=== PATIENT | male | born 1980 | race Caucasian/White ===

== ENCOUNTER 2018-10-07 17:15 | Emergency (ER) | payer MEDICAID, OTHER ==
[~2018-10-07] VITALS: Ht 188 cm; Wt 121.1 kg
--- OUTSIDE RECORDS SUMMARY | 2018-10-07 17:20 | XMS REPORT ---
Author Author SEAN SCHMID Organization [facility] Address [address] [place] [address] Care Team Providers Care Sap Consultant Name Role Phone SEAN SCHMID Unavailable PROBLEMS Type Condition ICD9-CM Code BGH50-BA Code Onset Dates Condition Status SNOMED Code Problem Thrombocytosis D47.3 Active [id number] ALLERGIES No Information ENCOUNTERS Encounter Location Date Diagnosis [address] [address] Sep, History of hepatitis C Z86.[address] [address] Sep, Abdominal pain, unspecified abdominal location R10.9 and History of hepatitis C Z86.[address] [address] Sep, IMMUNIZATIONS No Known Immunizations SOCIAL HISTORY Never Assessed REASON FOR VISIT Lab results PLAN OF CARE VITAL SIGNS MEDICATIONS Unknown Medications RESULTS No Results PROCEDURES No Known procedures INSTRUCTIONS MEDICATIONS ADMINISTERED No Known Medications MEDICAL (GENERAL) HISTORY Type Description Date Medical History depression Medical History anxiety Medical History hep C Medical History elevated cholesterol with elevated triglycerides Surgical History none
[2018-10-07] MEDS ORDERED: IOHEXOL 350 MG/ML 100 ML (OMNIPAQUE 350) VIAL IV ONE (18:30)
[2018-10-07] MEDS ORDERED: CATHETER FLUSH 10 ML SYR IV PRN (18:30)
[2018-10-07] MEDS ORDERED: NS 50 ML (IVPB) BAG IV ONE (18:30)
[2018-10-07] MEDS ORDERED: HOLD METFORMIN - RECEIVED CONTRAST 20 ML VIAL IV SCH (18:30)
--- NOTE | 2018-10-07 19:09 | Diagnostic Imaging Report ---
PROCEDURE: CT abdomen and pelvis with contrast. TECHNIQUE: Multiple contiguous axial images were obtained through the abdomen and pelvis after administration of intravenous contrast. Auto Exposure Controls were utilized during the CT exam to meet ALARA standards for radiation dose reduction. INDICATION: Right-sided abdominal pain and bloating. COMPARISON: No prior studies are available for comparison. FINDINGS: Imaging through the lung bases demonstrates a very small left pleural effusion. Minimal infiltrate or atelectasis in the left base as well. The liver demonstrates a nodular contour consistent with cirrhosis. No discrete liver mass is identified. There appear to be collateral vessels in the right anterior abdomen. The spleen is enlarged at approximately 20 cm. Pancreas is unremarkable. No adrenal masses detected. The kidneys are unremarkable. Aorta is nonaneurysmal. There is moderate ascites throughout the abdomen and pelvis. Bladder is decompressed. Bowel loops appear to be normal caliber without evidence of obstruction. No free air or well-formed fluid collection is seen. IMPRESSION: 1. Nodular contour to the liver, suspicious for cirrhosis. No discrete liver mass is identified. There is splenomegaly, large abdominal and pelvic ascites as well as abdominal varices, suggestive of portal hypertension. No other significant abnormality is detected. Dictated by: Dictated on workstation # [id number]
[2018-10-07 19:19] LABS: HEMATOCRIT 36 % (40-54); HEMOGLOBIN 12.2 G/DL (13.3-17.7); MEAN CORPUSCULAR HEMOGLOBIN 35 PG (25-34); MEAN CORPUSCULAR HGB CONC 34 G/DL (32-36); MEAN CORPUSCULAR VOLUME 103 FL (80-99); PLATELET COUNT 64 10^3/uL (130-400); RED CELL DISTRIBUTION WIDTH 15.7 % (10.0-14.5); WHITE BLOOD COUNT 4.2 10^3/uL (4.3-11.0)
[2018-10-07 19:20] LABS: BASOPHILS % (AUTO) 1 % (0-10); EOSINOPHILS # (AUTO) 0.1 10^3/uL (0.0-0.3); EOSINOPHILS % (AUTO) 3 % (0-10); LYMPHOCYTES # (AUTO) 1.8 X 10^3 (1.0-4.0); LYMPHOCYTES % (AUTO) 42 % (12-44); MEAN PLATELET VOLUME 10.1 FL (7.4-10.4); MONOCYTES # (AUTO) 0.4 X 10^3 (0.0-1.0); MONOCYTES % (AUTO) 9 % (0-12); NEUTROPHILS # (AUTO) 1.9 X 10^3 (1.8-7.8); NEUTROPHILS % (AUTO) 45 % (42-75)
[2018-10-07 19:21] LABS: CANNABINOID SCREEN, URINE POSITIVE (NEGATIVE); COCAINE SCREEN URINE NEGATIVE (NEGATIVE); METHAMPHETAMINE SCREEN URINE S NEGATIVE (NEGATIVE)
[2018-10-07 19:22] LABS: AMPHETAMINE SCREEN, URINE NEGATIVE (NEGATIVE); BARBITURATE SCREEN URINE NEGATIVE (NEGATIVE); BENZODIAZEPINES SCREEN URINE NEGATIVE (NEGATIVE); METHADONE STAT NEGATIVE (NEGATIVE); OPIATE SCREEN URINE NEGATIVE (NEGATIVE); OXYCODONE STAT NEGATIVE (NEGATIVE); PROPOXYPHENE STAT NEGATIVE (NEGATIVE); TRICYCLIC ANTIDEPRESSANTS SCRE NEGATIVE (NEGATIVE)
[2018-10-07 19:23] LABS: CLARITY,URINE CLEAR; COLOR,URINE ORANGE; GLUCOSE, URINE (UA) TRACE (NEGATIVE); PROTEIN,URINE TRACE (NEGATIVE)
[2018-10-07 19:24] LABS: BILIRUBIN,URINE 2+ (NEGATIVE); KETONES,URINE TRACE (NEGATIVE); NITRITE,URINE POSITIVE (NEGATIVE)
[2018-10-07 19:25] LABS: BACTERIA,URINE NEGATIVE /HPF; LEUKOCYTE ESTERASE ,URINE NEGATIVE (NEGATIVE); RBC,URINE 0-2 /HPF; UROBILINOGEN,URINE >=8.0 MG/DL (NORMAL)
[2018-10-07] MEDS ORDERED: fentaNYL INJECTION 100 MCG/2 ML AMP IVP ONE ×2 (19:30→21:15)
[2018-10-07] MEDS ORDERED: ONDANSETRON 4 MG/2 ML (SDV) Z0FRAN IVP ONE (19:30)
[2018-10-07] MEDS ORDERED: NS IV 500 ML 500 ML IV ONE (19:30)
[2018-10-07 19:33] LABS: INR 1.7 (0.8-1.4); PROTHROMBIN TIME PATIENT 19.6 SEC (12.2-14.7)
[2018-10-07 19:34] LABS: CARBON DIOXIDE 25 MMOL/L (21-32); CHLORIDE 104 MMOL/L (98-107); POTASSIUM 3.5 MMOL/L (3.6-5.0); SODIUM 138 MMOL/L (135-145)
[2018-10-07 19:35] LABS: ALANINE AMINOTRANSFERASE 29 U/L (0-55); ALBUMIN 2.5 GM/DL (3.2-4.5); ALKALINE PHOSPHATASE 170 U/L (40-136); BILIRUBIN,TOTAL 3.6 MG/DL (0.1-1.0); BUN/CREATININE RATIO 9; CALCIUM 7.5 MG/DL (8.5-10.1); CREATININE SERUM 0.64 MG/DL (0.60-1.30); GFR ESTIMATED > 60; GLUCOSE 79 MG/DL (70-105); LIPASE 67 U/L (8-78); TOTAL PROTEIN 5.8 GM/DL (6.4-8.2)
--- NOTE | 2018-10-07 19:44 | ED Abdominal Pain ---
General Chief Complaint: Abdominal/GI Problems Stated Complaint: BLOATING, ABD PAIN Nursing Triage Note: Sent from [facility] for abdominal pain, hx of hep C. Has had abdominal pain for 2 months that is worsening. Was seen 2 months ago in clinic but has not been seen since then. Sepsis Screen: No Definite Risk Source of Information: Patient, Spouse History of Present Illness Date Seen by Provider: Oct 07, 2018 Time Seen by Provider: 18:55 Initial Comments 38-year-old male presenting with increasing abdominal pain and swelling. He states over the last 2 months he's had increasing pain. In the last week he has had worsening pain so his made him come to the emergency department to get checked out today. He denies having any fever or chills at home. He states he has been having some shortness of breath because of his abdominal swelling. He denies having any blood in his stools. He has had some loose stools recently. He denies any change in his urination but states that it has been a long darker recently. He admits to only drinking 32 ounces of soda in a day and then some water to take his pills. He is taking medication from the hepatology clinic at for treatment of his hepatitis C. He started this in July and at this 12 week course so he is almost finished with this. He reports that his next follow- up with them is not until March. Allergies and Home Medications Allergies Coded Allergies: No Known Drug Allergies (Unverified , 10/07/18) Home Medications Furosemide 40 Mg Tablet, 40 MG PO DAILY Prescribed by: JOSEFINA MALONEY on 10/07/182255 Glecaprevir/Pibrentasvir 1 Each Tablet, 3 TAB PO DAILY, (Reported) Spironolactone 100 Mg Tablet, 100 MG PO DAILY Prescribed by: JOSEFINA MALONEY on 10/07/182255 Patient Home Medication List Home Medication List Reviewed: Yes Review of Systems Review of Systems Constitutional: No chills, No fever EENTM: No Symptoms Reported Respiratory: Denies Cough; Shortness of Air (due to increased abdomen size) Cardiovascular: No Symptoms Reported Gastrointestinal: Abdomen Distended, Abdominal Pain; Denies Blood Streaked Stools, Denies Constipated, Denies Difficulty Swallowing; Nausea, Poor Fluid Intake; Denies Rectal Bleeding, Denies Vomiting Genitourinary: See HPI; Denies Burning, Denies Discharge, Denies Frequency, Denies Hematuria, Denies Pain, Denies Urgency; Other (darker colored urine) Musculoskeletal: no symptoms reported Skin: no symptoms reported; No change in color Psychiatric/Neurological: No Symptoms Reported Hematologic/Lymphatic: Easy Bruising Past Eofxgjy-Bnmwdp-Oowite Hx Past Med/Social Hx: Reviewed Nursing Past Med/Soc Hx Patient Social History Alcohol Use: Denies Use Recreational Drug Use: Yes Drug of Choice: marijuana Smoking Status: Current Everyday Smoker Type Used: Cigarettes Recent Foreign Travel: No Contact w/Someone Who Travel: No Recent Infectious Disease Expo: No Physical Abuse: No Sexual Abuse: No Mistreated: No Past Medical History Respiratory: No Cardiac: No Neurological: No Genitourinary: No Gastrointestinal: Yes Hepatitis, Cirrhosis Musculoskeletal: No Endocrine: No HEENT: No Cancer: No Physical Exam Vital Signs Vital Signs - First Documented 10/07/18 17:31 Temp 98.6 Pulse 87 Resp 26 B/P (MAP) 142/85 (104) Pulse Ox 98 Capillary Refill : Less Than 3 Seconds Height/Weight/BMI Height: 6'2.00" Weight: 267lbs. oz. 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, no motor/sensory deficits, alert, oriented x 3 Skin: normal color, warm/dry Progress/Results/Core Measures Results/Orders Lab Results Laboratory Tests Test 10/07/18 18:38 10/07/18 18:55 Range/Units Urine Color ORANGE Urine Clarity CLEAR Urine pH 6.0 5-9 Urine Specific [place] 1.025 H 1.016-1.022 Urine Protein TRACE H NEGATIVE Urine Glucose (UA) TRACE H NEGATIVE Urine Ketones TRACE H NEGATIVE Urine Nitrite POSITIVE H NEGATIVE Urine Bilirubin 2+ H NEGATIVE Urine Urobilinogen >=8.0 NORMAL MG/DL Urine Leukocyte Esterase NEGATIVE NEGATIVE Urine RBC (Auto) NEGATIVE NEGATIVE Urine RBC 0-2 /HPF Urine WBC 2-5 /HPF Urine Squamous Epithelial Cells NONE /HPF Urine Crystals NONE /LPF Urine Bacteria NEGATIVE /HPF Urine Casts NONE /LPF Urine Mucus LARGE H /LPF Urine Culture Indicated YES Urine Opiates Screen NEGATIVE NEGATIVE Urine Oxycodone Screen NEGATIVE NEGATIVE Urine Methadone Screen NEGATIVE NEGATIVE Urine Propoxyphene Screen NEGATIVE NEGATIVE Urine Barbiturates Screen NEGATIVE NEGATIVE Ur Tricyclic Antidepressants Screen NEGATIVE NEGATIVE Urine Phencyclidine Screen NEGATIVE NEGATIVE Urine Amphetamines Screen NEGATIVE NEGATIVE Urine Methamphetamines Screen NEGATIVE NEGATIVE Urine Benzodiazepines Screen NEGATIVE NEGATIVE Urine Cocaine Screen NEGATIVE NEGATIVE Urine Cannabinoids Screen POSITIVE H NEGATIVE White Blood Count 4.2 L 4.3-11.0 10^3/uL Red Blood Count 3.52 L 4.35-5.85 10^6/uL Hemoglobin 12.2 L 13.3-17.7 G/DL Hematocrit 36 L 40-54 % Mean Corpuscular Volume 103 H 80-99 FL Mean Corpuscular Hemoglobin 35 H 25-34 PG Mean Corpuscular Hemoglobin Concent 34 32-36 G/DL Red Cell Distribution Width 15.7 H 10.0-14.5 % Platelet Count 64 L 130-400 10^3/uL Mean Platelet Volume 10.1 7.4-10.4 FL Neutrophils (%) (Auto) 45 42-75 % Lymphocytes (%) (Auto) 42 12-44 % Monocytes (%) (Auto) 9 0-12 % Eosinophils (%) (Auto) 3 0-10 % Basophils (%) (Auto) 1 0-10 % Neutrophils # (Auto) 1.9 1.8-7.8 X 10^3 Lymphocytes # (Auto) 1.8 1.0-4.0 X 10^3 Monocytes # (Auto) 0.4 0.0-1.0 X 10^3 Eosinophils # (Auto) 0.1 0.0-0.3 10^3/uL Basophils # (Auto) 0.0 0.0-0.1 10^3/uL Prothrombin Time 19.6 H 12.2-14.7 SEC INR Comment 1.7 H 0.8-1.4 Activated Partial Thromboplast Time 39 H 24-35 SEC Sodium Level 138 135-145 MMOL/L Potassium Level 3.5 L 3.6-5.0 MMOL/L Chloride Level 104 98-107 MMOL/L Carbon Dioxide Level 25 21-32 MMOL/L Anion Gap 9 5-14 MMOL/L Blood Urea Nitrogen 6 L 7-18 MG/DL Creatinine 0.64 0.60-1.30 MG/DL Estimat Glomerular Filtration Rate > 60 BUN/Creatinine Ratio 9 Glucose Level 79 70-105 MG/DL Calcium Level 7.5 L 8.5-10.1 MG/DL Corrected Calcium 8.7 8.5-10.1 MG/DL Total Bilirubin 3.6 H 0.1-1.0 MG/DL Aspartate Amino Transf (AST/SGOT) 48 H 5-34 U/L Alanine Aminotransferase (ALT/SGPT) 29 0-55 U/L Alkaline Phosphatase 170 H 40-136 U/L Total Protein 5.8 L 6.4-8.2 GM/DL Albumin 2.5 L 3.2-4.5 GM/DL Lipase 67 8-78 U/L Serum Alcohol < 10 <10 MG/DL My Orders Orders - JOSEFINA MALONEY MD Comprehensive Metabolic Panel (10/07/18 18:13) Lipase (10/07/18 18:13) Ua Culture If Indicated (10/07/18 18:13) Saline Lock/Iv-Start (10/07/18 18:13) Cbc With Automated Diff (10/07/18 18:13) Ct Abdomen/Pelvis W (10/07/18 18:13) Protime With Inr (10/07/18 18:13) Partial Thromboplastin Time (10/07/18 18:13) Drug Screen Stat (Urine) (10/07/18 18:13) Alcohol (10/07/18 18:13) Iohexol Injection (Omnipaque 350 Mg/Ml 1 (10/07/18 18:30) Received Contrast (Hold Metformin- Contr (10/07/18 18:30) Sodium Chloride Flush (Catheter Flush Sy (10/07/18 18:30) Ns (Ivpb) (Sodium Chloride 0.9% Ivpb Bag (10/07/18 18:30) Urine Culture (10/07/18 18:38) Fentanyl Injection (Sublimaze Injection (10/07/18 19:30) Ns Iv 500 Ml (Sodium Chloride 0.9%) (10/07/18 19:30) Ondansetron Injection (Zofran Injectio (10/07/18 19:30) Fentanyl Injection (Sublimaze Injection (10/07/18 21:15) Furosemide Tablet (Lasix Tablet) (10/07/18 23:00) Furosemide Tablet (Lasix Tablet) (10/07/18 23:07) Medications Given in ED Current Medications Medications Dose Ordered Sig/Rufino Route Start Time Stop Time Status Last Admin Dose Admin Fentanyl Citrate 50 mcg ONCE ONCE IVP 10/07/18 19:30 10/07/18 19:31 DC 10/07/18 19:43 50 MCG Fentanyl Citrate 50 mcg ONCE ONCE IVP 10/07/18 21:15 10/07/18 21:16 DC 10/07/18 21:32 50 MCG Furosemide 40 mg ONCE ONCE PO 10/07/18 23:00 10/07/18 23:01 DC 10/07/18 23:28 40 MG Iohexol 100 ml ONCE ONCE IV 10/07/18 18:30 10/07/18 18:38 DC 10/07/18 18:43 100 ML Ondansetron HCl 4 mg ONCE ONCE IVP 10/07/18 19:30 10/07/18 19:31 DC 10/07/18 19:43 4 MG Sodium Chloride 10 ml NEEDED PRN IV 10/07/18 18:30 10/08/18 00:09 DC 10/07/18 18:43 10 ML Sodium Chloride 50 ml ONCE ONCE IV 10/07/18 18:30 10/07/18 18:38 DC 10/07/18 18:43 50 ML Sodium Chloride 500 ml @ 500 mls/hr Q1H ONCE IV 10/07/18 19:30 10/07/18 20:29 DC 10/07/18 19:41 500 MLS/HR Vital Signs/I&O 10/07/18 10/07/18 17:31 23:35 Temp 98.6 98.0 Pulse 87 83 Resp 26 17 B/P (MAP) 142/85 (104) 119/67 (84) Pulse Ox 98 94 10/08/18 00:00 Intake Total 510 ml Balance 510 ml Blood Pressure Mean: 104 Progress Progress Note #1: Progress Note check labs and CT scan of abdomen and pelvis to evaluate this abdominal pain and swelling. For the pain we'll try low-dose of fentanyl 50 g IV as well as 4 mg of Zofran for his nausea. Will give a small 500 mL bolus of normal saline since he states that he has not been drinking very much fluid and his urine has been darker in color. Progress Note #2: Time: 20:40 Progress Note On recheck his CT shows ascites and cirrhosis of his liver with findings for portal hypertension as well as splenomegaly. His labs were coming back showing chronic thrombocytopenia and chronic elevated bilirubin. His potassium is double -sided normal at 3.5 his calcium is a little low at 7.5. His coags are normal elevated to go along with his cirrhosis and hepatitis C. His urine was showing elevated bilirubin as well. His pain was improved after treatment. Will check in with [facility] in the hepatology department was for a consult. They may want him transferred to be able to do a diagnostic tap of his belly since he's had increasing abdominal pain in the last few weeks and months but they may also want him started on diuretics and follow-up in the clinic to get the testing done. Progress Note #3: Time: 21:20 Progress Note Page placed to the [facility] transfer center to get a consult with hepatology and they were dealing with of critical time since the patient and had to call me back. [address] one of the nurses from the transfer center called back and requested more information about Mr. Reeder. I reviewed things with him and faxed him the labs as well as clouded the imaging to . 2235 Dr. Alta Duncan with hepatology called back and I reviewed the case with her. She agreed that the patient did need a diagnostic tap but it does not sound like he needed it emergently tonight. Will arrange to have him get that done during the day. For tonight we will start him on Lasix 40 mg a day and Aldactone 100 mg a day. She will have her nurses from the hepatology clinic call tomorrow to get him arranged to have a diagnostic if not therapeutic tap done. I reviewed the plan with the patient and family. I counseled them on medication and treatment plan. I also reviewed follow-up and return precautions. Diagnostic Imaging Diagonstic Imaging: CT Plain Films/CT/US/NM/MRI: abdomen, pelvis Comments NAME: ABDELRAHMAN REEDER [facility] REC#: [id number] PT STATUS: REG ER : 1980 PHYSICIAN: JOSEFINA MALONEY MD ADMIT DATE: 10/07/18/ER FS Signed Date of Exam:10/07/18 CT ABDOMEN/PELVIS W PROCEDURE: CT abdomen and pelvis with contrast. TECHNIQUE: Multiple contiguous axial images were obtained through the abdomen and pelvis after administration of intravenous contrast. Auto Exposure Controls were utilized during the CT exam to meet ALARA standards for radiation dose reduction. INDICATION: Right-sided abdominal pain and bloating. COMPARISON: No prior studies are available for comparison. FINDINGS: Imaging through the lung bases demonstrates a very small left pleural effusion. Minimal infiltrate or atelectasis in the left base as well. The liver demonstrates a nodular contour consistent with cirrhosis. No discrete liver mass is identified. There appear to be collateral vessels in the right anterior abdomen. The spleen is enlarged at approximately 20 cm. Pancreas is unremarkable. No adrenal masses detected. The kidneys are unremarkable. Aorta is nonaneurysmal. There is moderate ascites throughout the abdomen and pelvis. Bladder is decompressed. Bowel loops appear to be normal caliber without evidence of obstruction. No free air or well-formed fluid collection is seen. IMPRESSION: 1. Nodular contour to the liver, suspicious for cirrhosis. No discrete liver mass is identified. There is splenomegaly, large abdominal and pelvic ascites as well as abdominal varices, suggestive of portal hypertension. No other significant abnormality is detected. Dictated by: Dictated on workstation # [id number] Dict: 10/07/18 1858 Reviewed: Reviewed by Me (and reviewed reading from Radiologist) Departure Impression Primary Impression: Cirrhosis of liver with ascites Qualified Codes: K74.60 - Unspecified cirrhosis of liver; R18.8 - Other ascites Additional Impression: Portal venous hypertension Disposition: HOME, SELF-CARE Condition: Stable Departure-Patient Inst. Decision time for Depature: 22:51 Referrals: [facility] (PCP) Primary Care Physician Patient Instructions: Cirrhosis, Fluid in the Belly (Ascites) (DC) Add. Discharge Instructions: Follow up with [facility] for a Paracentesis. They will need to drain some of the fluid (Ascites) from your belly to test for infection and to help with pain and abdominal swelling. The new medicines will help with the swelling but may also cause you to be dehydrated so you need to make sure you are drinking plenty of water and electrolyte drinks to stay well hydrated while you are taking them. [facility] is to call you to arrange for a Paracentesis tomorrow. If you have not heard from them by mid to late morning then you may call the hepatology clinic to help arrange for this. Dr. Alta Duncan was the doctor I spoke with nahed that wanted you to get seen and have this test done. All discharge instructions reviewed with patient and/or family. Voiced understanding. Scripts Spironolactone (Spironolactone) 100 Mg Tablet 100 MG PO DAILY for ascites for 15 Days, #15 TAB 0 Refills Prov: JOSEFINA MALONEY MD 10/07/18 Furosemide (Furosemide) 40 Mg Tablet 40 MG PO DAILY for ascites for 15 Days, #15 TAB 0 Refills Prov: JSOEFINA MALONEY MD 10/07/18 JOSEFINA MALONEY MD Oct 07, 2018 19:44
[2018-10-07] MEDS ORDERED: FURO40TA4 PO (22:56)
[2018-10-07] MEDS ORDERED: SPIR100T4 PO (22:56)
[2018-10-07] MEDS ORDERED: FUROSEMIDE 40 MG (LASIX) TAB PO ONE (23:00)
[2018-10-07] MEDS ORDERED: FUROSEMIDE 20 MG (LASIX) TAB ONE (23:07)
[2018-10-07 23:35] VITALS: BP 119/67
[2018-10-08] MEDS ORDERED: GLEC1TAB PO (00:03)
== END 2018-10-07 23:35 | disposition home or self-care (01) ==
LOC: ER FS 17:16
DX: K74.60 Unspecified cirrhosis of liver (principal); R18.8 Other ascites; K76.6 Portal hypertension; F12.10 Cannabis abuse, uncomplicated; F17.210 Nicotine dependence, cigarettes, uncomplicated; Z87.19 Personal history of other diseases of the digestive system
CPT/HCPCS: 36415; 74177; 80053; 80306; 80320; 81000; 83690; 85025; 85610; 85730; 87088; 96361; 96374; 96375; 96376

== ENCOUNTER → 2018-10-14 | Outpatient (CLI) | payer MEDICAID ==
[~2018-10-14] MED LIST: CATHETER FLUSH 10 ML SYR IV PRN; FURO40TA4 PO; GLEC1TAB PO; HOLD METFORMIN - RECEIVED CONTRAST 20 ML VIAL IV SCH; IOHEXOL 350 MG/ML 100 ML (OMNIPAQUE 350) VIAL IV ONE; NS 50 ML (IVPB) BAG IV ONE; SPIR100T4 PO
--- NOTE | 2018-10-14 13:55 | Diagnostic Imaging Report ---
PROCEDURE: CT abdomen and pelvis with contrast. TECHNIQUE: Multiple contiguous axial images were obtained through the abdomen and pelvis after administration of intravenous contrast. Auto Exposure Controls were utilized during the CT exam to meet ALARA standards for radiation dose reduction. INDICATION: Abdominal pain. FINDINGS: The previous CT abdomen/pelvis exam of 10/07/2018 noted that the liver had a nodular appearance, suggestive of cirrhosis. There was also splenomegaly. In addition, there was abdominal and pelvic ascites. Reportedly, the patient underwent paracentesis two days later. On this exam, the amount of ascites present is similar to the prior study. The fluid interposed between the abdominal wall and the liver measures approximately 3.9 cm in maximum depth as opposed to 4.7 cm on the previous study. The overall appearance of the abdomen and pelvis has not changed significantly, otherwise. No new abnormality has developed. As noted on the prior exam, there is a small amount of fluid in the left lung base. The atelectasis/infiltrate in the left lower lobe seen previously has essentially resolved. The right lung base is generally clear. The bone windows show no sign of a fracture or of a destructive lesion. IMPRESSION: 1. There has been a significant reaccumulation of the ascites in the interval since the paracentesis. The amount of free fluid present within the abdomen is now somewhat less but similar to the previous study. 2. The overall appearance of the abdomen and pelvis has not changed significantly, otherwise. No new abnormality has developed. 3. There is still persistent small left pleural effusion. The left lower lobe does seem better aerated, however. Dictated by: Dictated on workstation # [id number]
== END ==
LOC: RAD FS 10:37
PROVIDERS: ATTEND Nurse Practitioner
DX: J90 Pleural effusion, not elsewhere classified (principal); R18.8 Other ascites; R14.0 Abdominal distension (gaseous); R10.9 Unspecified abdominal pain
CPT/HCPCS: 74177

== ENCOUNTER 2019-02-12 15:18 | Emergency (ER) | payer MEDICAID ==
[~2019-02-12] VITALS: Ht 188 cm; Wt 113.4 kg
[~2019-02-12 15:18] MED LIST changes: -CATHETER FLUSH 10 ML SYR IV PRN; -HOLD METFORMIN - RECEIVED CONTRAST 20 ML VIAL IV SCH; -IOHEXOL 350 MG/ML 100 ML (OMNIPAQUE 350) VIAL IV ONE; -NS 50 ML (IVPB) BAG IV ONE
[2019-02-12 16:01] LABS: CLARITY,URINE CLEAR; COLOR,URINE DARK YELLOW; PH,URINE 6.5 (5-9)
[2019-02-12 16:02] LABS: BACTERIA,URINE NEGATIVE /HPF; BILIRUBIN,URINE NEGATIVE (NEGATIVE); GLUCOSE, URINE (UA) NEGATIVE (NEGATIVE); KETONES,URINE NEGATIVE (NEGATIVE); LEUKOCYTE ESTERASE ,URINE NEGATIVE (NEGATIVE); NITRITE,URINE NEGATIVE (NEGATIVE); PROTEIN,URINE NEGATIVE (NEGATIVE); WBC,URINE RARE /HPF
[2019-02-12 16:06] LABS: CANNABINOID SCREEN, URINE POSITIVE (NEGATIVE)
[2019-02-12 16:07] LABS: HEMATOCRIT 39 % (40-54); HEMOGLOBIN 12.8 G/DL (13.3-17.7); MEAN CORPUSCULAR HEMOGLOBIN 35 PG (25-34); MEAN CORPUSCULAR VOLUME 107 FL (80-99); WHITE BLOOD COUNT 4.6 10^3/uL (4.3-11.0)
[2019-02-12 16:07] LABS: AMPHETAMINE SCREEN, URINE NEGATIVE (NEGATIVE); BARBITURATE SCREEN URINE NEGATIVE (NEGATIVE); BENZODIAZEPINES SCREEN URINE NEGATIVE (NEGATIVE); COCAINE SCREEN URINE NEGATIVE (NEGATIVE); METHADONE STAT NEGATIVE (NEGATIVE); METHAMPHETAMINE SCREEN URINE S NEGATIVE (NEGATIVE); OPIATE SCREEN URINE NEGATIVE (NEGATIVE); OXYCODONE STAT NEGATIVE (NEGATIVE); PROPOXYPHENE STAT NEGATIVE (NEGATIVE); TRICYCLIC ANTIDEPRESSANTS SCRE NEGATIVE (NEGATIVE)
[2019-02-12 16:08] LABS: BASOPHILS % (AUTO) 0 % (0-10); EOSINOPHILS % (AUTO) 4 % (0-10); LYMPHOCYTES # (AUTO) 1.5 X 10^3 (1.0-4.0); LYMPHOCYTES % (AUTO) 33 % (12-44); MEAN CORPUSCULAR HGB CONC 33 G/DL (32-36); MONOCYTES # (AUTO) 0.4 X 10^3 (0.0-1.0); MONOCYTES % (AUTO) 9 % (0-12); NEUTROPHILS # (AUTO) 2.5 X 10^3 (1.8-7.8); NEUTROPHILS % (AUTO) 54 % (42-75); PLATELET COUNT 70 10^3/uL (130-400); RED CELL DISTRIBUTION WIDTH 14.6 % (10.0-14.5)
[2019-02-12 16:09] LABS: EOSINOPHILS # (AUTO) 0.2 10^3/uL (0.0-0.3)
[2019-02-12 16:23] LABS: ALANINE AMINOTRANSFERASE 37 U/L (0-55); ALBUMIN 2.5 GM/DL (3.2-4.5); ALKALINE PHOSPHATASE 170 U/L (40-136); BILIRUBIN,TOTAL 1.9 MG/DL (0.1-1.0); BUN/CREATININE RATIO 9; CALCIUM 8.2 MG/DL (8.5-10.1); CARBON DIOXIDE 25 MMOL/L (21-32); CHLORIDE 106 MMOL/L (98-107); CREATININE SERUM 0.64 MG/DL (0.60-1.30); GFR ESTIMATED > 60; GLUCOSE 84 MG/DL (70-105); SALICYLATE < 5.0 MG/DL (5.0-20.0); SODIUM 141 MMOL/L (135-145); TOTAL PROTEIN 6.5 GM/DL (6.4-8.2)
[2019-02-12 16:24] LABS: ACETAMINOPHEN < 10 UG/ML (10-30)
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
--- NOTE | 2019-02-12 16:56 | NUR ---
Pt is medically cleared at this time. [facility] is contacted at this. Patient information given and tracking number is [id number]. Facesheet and lab results faxed to [facility].
--- NOTE | 2019-02-12 16:58 | NUR ---
is currently with the patient.
--- NOTE | 2019-02-12 17:04 | NUR ---
Patient's labs and facesheet faxed to [facility] at [phone].
[2019-02-12] MEDS ORDERED: ZIPRASIDONE 20 MG INJ (GEODON) VIAL IM STA (17:16)
[2019-02-12] MEDS ORDERED: WATER (STERILE) FOR INJECTION 10 ML ONE (17:40)
--- NOTE | 2019-02-12 18:30 | NUR ---
Return call rec'd from [facility] with [facility]. Fatmata Rodríguez reports in the intake process a male bed is available. Needing pt's EKG. Faxed EKG
--- NOTE | 2019-02-12 18:40 | NUR ---
EKG re-faxed.
--- NOTE | 2019-02-12 18:51 | NUR ---
Call from [facility] nurse "Chana" and more info requested and condition update and vitals. Chana states she will shannan their Dr and plan on getting a Dr to Dr report shortly. Report to Stacie DELUNA.
[2019-02-12] MEDS ORDERED: NICOTINE 21 MG (NICODERM) PATCH ONE (19:39)
[2019-02-12] MEDS ORDERED: NICOTINE 21 MG (NICODERM) PATCH TD STA (19:46)
[2019-02-12 20:08] VITALS: BP 106/65
--- OUTSIDE RECORDS SUMMARY | 2019-02-13 00:45 | XMS REPORT | Continuity of Care Document ---
Author Organization Unknown Address Unknown Phone Unavailable Allergies There is no data. Medications There is no data. Problems There is no data. Procedures There is no data. Results Test Result Range CBC w/MANUAL DIFF - 09/08/18 14:27 WHITE BLOOD CELL COUNT 5.4 Thousand/uL 3.8-10.8 RED BLOOD CELL COUNT 4.02 Million/uL 4.20-5.80 HEMOGLOBIN 13.7 g/dL 13.2-17.1 HEMATOCRIT 39.2 % 38.5-50.0 MCV 97.5 fL 80.0-100.0 MCH 34.1 pg 27.0-33.0 MCHC 34.9 g/dL 32.0-36.0 RDW 13.9 % 11.0-15.0 PLATELET COUNT 74 Thousand/uL 140-400 MPV 11.9 fL 7.5-12.5 DIFFERENTIAL, MANUAL - 09/08/18 14:27 ABSOLUTE NEUTROPHILS 3618 cells/uL [id number] ABSOLUTE MONOCYTES 470 cells/uL 200-950 ABSOLUTE EOSINOPHILS 211 cells/uL 15-500 ABSOLUTE BASOPHILS 0 cells/uL 0-200 NEUTROPHILS 67.0 % NRG LYMPHOCYTES 19.4 % NRG MONOCYTES 8.7 % NRG EOSINOPHILS 3.9 % NRG BASOPHILS 0 % NRG ABSOLUTE BAND NEUTROPHILS 54 cells/uL 0-750 ABSOLUTE LYMPHOCYTES 1048 cells/uL 850-3900 BAND NEUTROPHILS 1.0 % NRG PLATELET ESTIMATION DECREASED ADEQUATE Encounters ACCT No. Visit Date/Time Discharge Status Pt. Type Provider Facility Loc./Unit Complaint [id number] 12/05/2018 13:00:00 12/05/2018 23:59:59 [facility] Outpatient [facility] [id number] 09/08/2018 13:40:00 Document Registration
== END 2019-02-12 21:15 ==
LOC: EDUNIT# 15:18 → ER FS 15:19
DX: F20.9 Schizophrenia, unspecified (principal); F31.9 Bipolar disorder, unspecified; R45.850 Homicidal ideations; K74.60 Unspecified cirrhosis of liver
CPT/HCPCS: 36415; 80053; 80306; 80320; 80329; 81000; 85025; 93005

== ENCOUNTER → 2019-10-20 | Outpatient (CLI) | payer MEDICAID ==
[~2019-10-20] MED LIST changes: +CATHETER FLUSH 10 ML SYR IV PRN; +HOLD METFORMIN - RECEIVED CONTRAST 20 ML VIAL IV SCH; +IOHEXOL 350 MG/ML 150 ML (OMNIPAQUE 350) VIAL IV ONE; +NS 100 ML (IVPB) BAG IV ONE
--- NOTE | 2019-10-20 16:24 | Diagnostic Imaging Report ---
PROCEDURE: CT angiography of the chest with contrast. TECHNIQUE: Multiple contiguous axial images were obtained through the chest after uneventful bolus administration of intravenous contrast. 3D reconstructed CTA MIP acquisitions were also performed. Auto Exposure Controls were utilized during the CT exam to meet ALARA standards for radiation dose reduction. INDICATION: Shortness of breath and elevated d-dimer. COMPARISON: No prior studies are available for comparison. FINDINGS: The overall quality of the study is compromised due to patient respiratory motion. This also limits evaluation of the segmental and subsegmental pulmonary arteries. The central and lobar pulmonary arteries appear to be patent. No definite filling defect or evidence of thromboembolism is identified. No pericardial fluid is seen. There is trace left pleural effusion. Minimal subsegmental atelectasis in the left lower lobe is noted. Trace infiltrate or atelectasis in the right upper lobe is identified. The upper abdomen demonstrates large ascites. There is a nodular contour to the liver, consistent with cirrhosis. The spleen is enlarged. IMPRESSION: 1. Compromised study but no evidence of central pulmonary emboli. There is trace left pleural fluid. Minimal infiltrate or atelectasis in the right upper lobe and left lower lobe is noted. 2. Large volume ascites with findings consistent with cirrhosis and portal hypertension. Dictated by: Dictated on workstation # [id number]
== END | disposition home or self-care (01) ==
LOC: RAD FS 13:45
PROVIDERS: ATTEND Nurse Practitioner Family
DX: K76.6 Portal hypertension (principal); R06.02 Shortness of breath; R79.1 Abnormal coagulation profile; R18.8 Other ascites
CPT/HCPCS: 71275

== ENCOUNTER → 2019-11-27 | Outpatient (CLI) | payer MEDICAID ==
[~2019-11-27] VITALS: Ht 188 cm; Wt 121.4 kg
[~2019-11-27] MED LIST changes: +ALBUMIN 25% 25 GM/100 ML 100 ML IV NR; -CATHETER FLUSH 10 ML SYR IV PRN; -HOLD METFORMIN - RECEIVED CONTRAST 20 ML VIAL IV SCH; -IOHEXOL 350 MG/ML 150 ML (OMNIPAQUE 350) VIAL IV ONE; -NS 100 ML (IVPB) BAG IV ONE
--- NOTE | 2019-11-27 12:20 | Progress Note-Pre Operative ---
Pre-Operative Progress Note H&P Reviewed The H&P was reviewed, patient examined and no changes noted. Time Seen by Provider: 10:58 Date H&P Reviewed: November 27, 2019 Time H&P Reviewed: 10:58 Pre-Operative Diagnosis: Ascites VETO HUBBARD DO November 27, 2019 12:20
--- NOTE | 2019-11-27 12:25 | Progress Note-Post Operative ---
Post-Operative Progess Note Surgeon (s)/Management Internship (s) Surgeon VETO HUBBARD DO Management Internship: none Pre-Operative Diagnosis Ascites Post-Operative Diagnosis same pending pathology Procedure & Operative Findings Date of Procedure 11/27/19 Procedure Performed/Findings US guided paracentesis Anesthesia Type Local lidocaine Estimated Blood Loss Estimated blood loss (mL): scant Specimens/Packing Specimens Removed over 7000ml VETO HUBBARD DO November 27, 2019 12:25
[2019-11-27 13:05] VITALS: BP 118/69
[2019-11-27 14:04] LABS: GLUCOSE,BODY FLUID 98 MG/DL; TOTAL PROTEIN,BODY FLUID < 0.8 G/DL
[2019-11-27 14:05] LABS: AMYLASE,BODY FLUID 14 U/L; LDH,BODY FLUID 49 U/L
[2019-11-27 14:18] LABS: BF OTHER CELLS 4 %; BODY FLUID APPEARENCE SLT CLDY; BODY FLUID COLOR YELLOW; BODY FLUID RBC COUNT 500 /uL; BODY FLUID SOURCE PERITON; BODY FLUID WBC TOTAL COUNT 155 /uL; LYMPHOCYTES,BODY FLUID 60 %
--- NOTE | 2019-11-27 19:54 | OPERATIVE REPORT ---
DATE OF SERVICE: 11/27/2019 PREOPERATIVE DIAGNOSIS: Ascites. POSTOPERATIVE DIAGNOSIS: Ascites, pending pathology. PROCEDURE: Ultrasound-guided paracentesis. SURGEON: Poncho Almonte DO FIELD ARTILLERY TARGETING TECHNICIAN: None. ANESTHESIA: Local lidocaine. BLOOD LOSS: Scant. SPECIMEN: 7600 mL of ascitic fluid. INDICATION FOR PROCEDURE: The patient is a 39-year-old male with end-stage liver failure and a large amount of ascites and needed a drain. FINDINGS: The patient had ascites drained with ultrasound guidance. PROCEDURE NOTE: After informed consent was obtained surgical pause performed. The patient's in the radiology procedure room was in the bed. He had been marked previously by the ultrasound and then he was sterilely prepped and draped in normal fashion. Local lidocaine was used to infiltrate the skin and then a stab incision made with #11 blade and then advanced the safety needle gently going through fascia and muscle and then gently entering the abdomen getting a clear yellow fluid. Advanced the catheter over the needle, removed the needle and then hooked the needle up to a vacutainers and used over 7 bottles getting out clear fluid to drain him. The patient tolerated the procedure. Sponge and needle count correct at the end of the case. Job ID: [id number] DocumentID: [id number] Dictated Date: 11/27/2019 12:25:14 Embossing Clerk Date: 11/27/2019 19:54:44 Dictated By: PONCHO ALMONTE DO [facility]
== END ==
LOC: RAD 10:12
PROVIDERS: ATTEND Surgery
DX: K70.31 Alcoholic cirrhosis of liver with ascites (principal)
CPT/HCPCS: 49083; 82150; 82570; 82945; 83615; 84157; 87070; 87075; 87205; 89051

== ENCOUNTER → 2019-12-11 | Outpatient (CLI) | payer MEDICAID ==
[~2019-12-11] VITALS: Ht 188 cm; Wt 124.1 kg
[2019-12-11] VITALS (9 sets, daily range): BP systolic 103–129; BP diastolic 58–75
[~2019-12-11] MED LIST changes: -ALBUMIN 25% 25 GM/100 ML 100 ML IV NR; +ALBUMIN 25% 25 GM/100 ML 100 ML IV ONE
--- NOTE | 2019-12-11 12:38 | Progress Note-Pre Operative ---
Pre-Operative Progress Note H&P Reviewed The H&P was reviewed, patient examined and no changes noted. Time Seen by Provider: 11: Date H&P Reviewed: Dec 11, 2019 Time H&P Reviewed: 11: Pre-Operative Diagnosis: Ascites VETO HUBBARD DO Dec 11, 2019 12:38
--- NOTE | 2019-12-11 12:43 | Progress Note-Post Operative ---
Post-Operative Progess Note Surgeon (s)/Children'S Attendant (s) Surgeon VETO HUBBARD DO Children'S Attendant: none Pre-Operative Diagnosis Ascites Post-Operative Diagnosis same Procedure & Operative Findings Date of Procedure 12/11/19 Procedure Performed/Findings US guided paracentesis Anesthesia Type Local lidocaine Estimated Blood Loss Estimated blood loss (mL): scant Specimens/Packing Specimens Removed 10,150 ml ascitic fluid Packing: dict #[id number] VETO HUBBARD DO Dec 11, 2019 12:43
--- NOTE | 2019-12-11 21:10 | OPERATIVE REPORT ---
DATE OF SERVICE: PREOPERATIVE DIAGNOSIS: Ascites. POSTOPERATIVE DIAGNOSIS: Ascites. PROCEDURE: Ultrasound-guided paracentesis. SURGEON: Poncho Almonte DO ICT BUSINESS ANALYST: None. ANESTHESIA: Local lidocaine. BLOOD LOSS: Scant. FLUIDS: None. SPECIMEN: 10,150 mL of ascitic fluid. INDICATION FOR PROCEDURE: The patient is a 39-year-old male with end-stage liver failure with a large amount of ascites and needs drainage. FINDINGS: The patient had a large amount of ascitic fluid drained from his abdomen. PROCEDURE NOTE: After informed consent was obtained, the patient was brought to the radiology procedure room. A timeout was performed. He was then sterilely prepped and draped in normal fashion. Just prior to this ultrasound, did a quick exam and marked his abdomen in the right upper quadrant where there was a large amount of fluid. This area was then prepped and draped in normal fashion. Local lidocaine was used to infiltrate the skin. Stab incision made with #11 blade and then advanced the safety needle gently through the layers of tissue gently entering the abdomen getting a good flash of ascitic fluid. A catheter was then inserted over the needle and the needle was removed. This was then hooked up to a vacutainer suction and suctioned this out, got a 10,150 mL of ascitic fluid. The patient felt much better at the end of the case. This was removed. Dressing placed. The patient tolerated the procedure. Job ID: [id number] DocumentID: [id number] Dictated Date: 12/11/2019 12:42:53 Vulcan Crewmember Date: 12/11/2019 21:10:03 Dictated By: PONCHO ALMONTE DO
== END ==
LOC: RAD 10:27
PROVIDERS: ATTEND Surgery
DX: K70.31 Alcoholic cirrhosis of liver with ascites (principal)
CPT/HCPCS: 49083

== ENCOUNTER 2019-12-29 21:31 | Inpatient (IN) | payer MEDICAID ==
[~2019-12-29] VITALS: Ht 187.9 cm; Wt 119.9 kg
[~2019-12-29 21:31] MED LIST changes: -ALBUMIN 25% 25 GM/100 ML 100 ML IV ONE
--- NOTE | 2019-12-29 21:40 | ED General ---
General Stated Complaint: LEFT SIDE CHEST PAIN Source of Information: Patient, RN/MD, RN Notes Reviewed Exam Limitations: No Limitations History of Present Illness Date Seen by Provider: Dec 29, 2019 Time Seen by Provider: 21:30 Initial Comments This patient is a 39-year-old male that is a end-stage cirrhosis of the liver and chronic issues with ascites. 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 And hepatitis C. Patient states she's been getting paracentesis every 2 weeks for the past several months. Last was given 2 weeks ago. Patient states he has a scheduled appointment with a general surgeon about possibly putting in a drain into his abdomen to help drain ascitic fluid. Patient states he comes in today for complaints of chest pain hurts to take a deep breath. Patient is a very distended abdomen. We'll do medical evaluation treatment is needed Timing/Duration: 2-3 Days Severity: Moderate Associated Systoms: No Denies Symptoms; Chest Pain; No Cough, No Diaphoresis, No Fever/Chills, No Headaches; Loss of Appetite; No Malaise, No Nausea/Vomiting, No Rash, No Seizure; Shortness of Air; No Syncope, No Weakness, No Other Allergies and Home Medications Allergies Coded Allergies: No Known Drug Allergies (Unverified , 10/07/18) Home Medications Furosemide 40 Mg Tablet, 40 MG PO DAILY Prescribed by: JOSEFINA MALONEY on 10/07/182255 Glecaprevir/Pibrentasvir 1 Each Tablet, 3 TAB PO DAILY, (Reported) Spironolactone 100 Mg Tablet, 100 MG PO DAILY Prescribed by: JOSEFINA MALONEY on 10/07/182255 Patient Home Medication List Home Medication List Reviewed: Yes Review of Systems Review of Systems Constitutional: No no symptoms reported, No see HPI, No chills, No diaphoresis, No dizziness, No fever, No malaise, No weakness, No weight gain, No weight loss, No other EENTM: No see HPI, No no symptoms reported, No ear discharge, No hearing loss, No ear pain, No blurred vision, No double vision, No eye pain, No tearing, No vision loss, No dental problems, No hoarseness, No mouth pain, No mouth swelling, No epistaxis, No nose congestion, No nose pain, No throat pain, No throat swelling, No other Respiratory: No no symptoms reported, No see HPI, No cough; dyspnea on exertion; No hemoptysis, No orthopnea, No phlegm, No short of breath, No stridor, No wheezing, No other Cardiovascular: No no symptoms reported; see HPI, chest pain; No edema, No Hx of Intervention, No palpitations, No syncope, No vascular heart diseas, No other Gastrointestinal: No RUQ, No LUQ, No RLQ, No LLQ, No no symptoms reported, No see HPI, No abdominal pain, No constipation, No diarrhea, No dysphagia, No hematemesis, No heartburn, No jaundice, No loss of appetite, No melena, No nausea, No vomiting, No other Musculoskeletal: No no symptoms reported, No see HPI, No back pain, No gout, No joint pain, No joint swelling, No muscle pain, No muscle stiffness, No muscle cramps, No muscle twitching, No muscle weakness, No neck pain, No other Skin: No no symptoms reported, No see HPI, No change in color, No change in hair/nails, No dryness, No hx of skin cancer, No lesions, No lumps, No pruritus, No rash, No other All Other Systems Reviewed Negative Unless Noted: Yes Past Cqawmdf-Lntepk-Ldbofo Hx Patient Social History Drug of Choice: marijuana Type Used: Cigarettes 2nd Hand Smoke Exposure: Yes Recent Foreign Travel: No Contact w/Someone Who Travel: No Recent Hopitalizations: No Seasonal Allergies Seasonal Allergies: No Past Medical History Surgeries: Yes (Liver bx/paracentesis) Respiratory: No Cardiac: No Neurological: No Genitourinary: No Gastrointestinal: Yes (Hep C) Hepatitis, Cirrhosis Musculoskeletal: No Endocrine: No HEENT: No Cancer: No Psychosocial: Yes (Hx SI) Anxiety, Bipolar, Schizophrenia, Depression Blood Disorders: No Physical Exam Vital Signs Vital Signs - First Documented 12/29/19 21:34 Temp 36.8 Pulse 100 Resp 20 B/P (MAP) 127/71 (89) Pulse Ox 99 O2 Delivery Room Air Capillary Refill : Height, Weight, BMI Height: 6'2.00" Weight: 250lbs. oz. 113.808036aa; 35.11 BMI Method:Stated General Appearance: No Apparent Distress, WD/WN, Anxious Respiratory: Chest Non Tender, Lungs Clear, Normal Breath Sounds, No Accessory Muscle Use, No Respiratory Distress Cardiovascular: Regular Rate, Rhythm, No Edema, No Gallop, No JVD, No Murmur, Normal Peripheral Pulses Gastrointestinal: Normal Bowel Sounds, No Organomegaly, No Pulsatile Mass, Distended, Hepatomegaly Back: Normal Inspection, No CVA Tenderness, No Vertebral Tenderness Skin: Warm/Dry (mild jaundice) Progress/Results/Core Measures Suspected Sepsis SIRS Temperature: Pulse: Respiratory Rate: Laboratory Tests 12/29/19 21:40: White Blood Count 5.2 Blood Pressure / Mean: Laboratory Tests 12/29/19 21:40: Creatinine 0.62, INR Comment 2.0H, Platelet Count 73L, Total Bilirubin 2.9H Results/Orders Lab Results Laboratory Tests Test 12/29/19 21:40 12/29/19 22:24 Range/Units White Blood Count 5.2 4.3-11.0 10^3/uL Red Blood Count 3.18 L 4.35-5.85 10^6/uL Hemoglobin 11.4 L 13.3-17.7 G/DL Hematocrit 33 L 40-54 % Mean Corpuscular Volume 105 H 80-99 FL Mean Corpuscular Hemoglobin 36 H 25-34 PG Mean Corpuscular Hemoglobin Concent 34 32-36 G/DL Red Cell Distribution Width 15.3 H 10.0-14.5 % Platelet Count 73 L 130-400 10^3/uL Mean Platelet Volume 10.5 H 7.4-10.4 FL Neutrophils (%) (Auto) 53 42-75 % Lymphocytes (%) (Auto) 31 12-44 % Monocytes (%) (Auto) 11 0-12 % Eosinophils (%) (Auto) 5 0-10 % Basophils (%) (Auto) 1 0-10 % Neutrophils # (Auto) 2.7 1.8-7.8 X 10^3 Lymphocytes # (Auto) 1.6 1.0-4.0 X 10^3 Monocytes # (Auto) 0.6 0.0-1.0 X 10^3 Eosinophils # (Auto) 0.3 0.0-0.3 10^3/uL Basophils # (Auto) 0.0 0.0-0.1 10^3/uL Prothrombin Time 23.0 H 12.2-14.7 SEC INR Comment 2.0 H 0.8-1.4 Sodium Level 138 135-145 MMOL/L Potassium Level 3.7 3.6-5.0 MMOL/L Chloride Level 105 98-107 MMOL/L Carbon Dioxide Level 24 21-32 MMOL/L Anion Gap 9 5-14 MMOL/L Blood Urea Nitrogen 5 L 7-18 MG/DL Creatinine 0.62 0.60-1.30 MG/DL Estimat Glomerular Filtration Rate > 60 BUN/Creatinine Ratio 8 Glucose Level 105 70-105 MG/DL Calcium Level 7.9 L 8.5-10.1 MG/DL Corrected Calcium 9.4 8.5-10.1 MG/DL Total Bilirubin 2.9 H 0.1-1.0 MG/DL Aspartate Amino Transf (AST/SGOT) 46 H 5-34 U/L Alanine Aminotransferase (ALT/SGPT) 30 0-55 U/L Alkaline Phosphatase 169 H 40-136 U/L Pro-B-Type Natriuretic Peptide 157.8 H <75.0 PG/ML Total Protein 6.0 L 6.4-8.2 GM/DL Albumin 2.1 L 3.2-4.5 GM/DL Serum Alcohol < 10 <10 MG/DL Urine Color KAREN H Urine Clarity SLT CLOUDY Urine pH 6.0 5-9 Urine Specific [place] >=1.030 1.016-1.022 Urine Protein 1+ H NEGATIVE Urine Glucose (UA) TRACE H NEGATIVE Urine Ketones TRACE H NEGATIVE Urine Nitrite POSITIVE H NEGATIVE Urine Bilirubin 2+ H NEGATIVE Urine Urobilinogen 4.0 < = 1.0 MG/DL Urine Leukocyte Esterase NEGATIVE NEGATIVE Urine RBC (Auto) 3+ H NEGATIVE Urine RBC 25-50 H /HPF Urine WBC 0-2 /HPF Urine Squamous Epithelial Cells NONE /HPF Urine Crystals NONE /LPF Urine Bacteria TRACE /HPF Urine Casts NONE /LPF Urine Mucus LARGE H /LPF Urine Culture Indicated YES Urine Opiates Screen NEGATIVE NEGATIVE Urine Oxycodone Screen NEGATIVE NEGATIVE Urine Methadone Screen NEGATIVE NEGATIVE Urine Propoxyphene Screen NEGATIVE NEGATIVE Urine Barbiturates Screen NEGATIVE NEGATIVE Ur Tricyclic Antidepressants Screen NEGATIVE NEGATIVE Urine Phencyclidine Screen NEGATIVE NEGATIVE Urine Amphetamines Screen NEGATIVE NEGATIVE Urine Methamphetamines Screen NEGATIVE NEGATIVE Urine Benzodiazepines Screen NEGATIVE NEGATIVE Urine Cocaine Screen NEGATIVE NEGATIVE Urine Cannabinoids Screen POSITIVE H NEGATIVE My Orders Orders - CHING RUSSELL MD Ed Iv/Invasive Line Start (12/29/19 21:36) Alcohol (12/29/19 21:36) Cbc With Automated Diff (12/29/19 21:36) Comprehensive Metabolic Panel (12/29/19 21:36) Urinalysis (12/29/19 21:36) Drug Screen Stat (Urine) (12/29/19 21:36) Ekg Tracing (12/29/19 21:36) Chest 1 View Ap/Pa Only (12/29/19 21:36) Probnp Fs (12/29/19 21:36) Protime With Inr (12/29/19 21:36) Urine Culture (12/29/19 22:24) Ceftriaxone For Iv Use (Rocephin For I (12/29/19 23:00) Furosemide Injection (Lasix Injection) (12/29/19 23:00) Vital Signs/I&O 12/29/19 21:34 Temp 36.8 Pulse 100 Resp 20 B/P (MAP) 127/71 (89) Pulse Ox 99 O2 Delivery Room Air Capillary Refill : Progress Note : Time: 23:02 Progress Note Patient appears to have some pulmonary edema most likely related to his ascites from cirrhosis of the liver. Patient also appears to have nitrate positive UTI. Patient given 80 of Lasix and Rocephin. I discussed at length with Dr. Galarza [facility] physician who is accepted this patient for transfer to [facility]. She will see patient upon arrival write additional orders. ECG Initial ECG Impression Date: Dec 29, 2019 Initial ECG Impression Time: 21:40 Initial ECG Rate: 94 Initial ECG Rhythm: Normal Sinus Initial ECG Intervals: Normal Initial ECG Impression: Normal Departure Impression Primary Impression: Chest pain Additional Impressions: Pulmonary edema Ascites due to alcoholic cirrhosis UTI (urinary tract infection) Disposition: ADMITTED INPATIENT Condition: Stable Admissions Decision to Admit Reason: Admit from ER (General) Decision to Admit/Date: Dec 29, 2019 Time/Decision to Admit Time: 23:03 Transfer Transfer Reason: Exceeds level of care Time Spoke to Accepting Phy: 23:[address] Galarza has accepted this patient for [facility] admission Transfer Time: 23:04 Transfer Facility: [facility] Method of Transfer: EMS Departure-Patient Inst. Referrals: [facility] (PCP) Primary Care Physician SEAN SCHMID (Family) Primary Care Physician CHING RUSSELL MD Dec 29, 2019 21:40
[2019-12-29 21:45] LABS: HEMATOCRIT 33 % (40-54); HEMOGLOBIN 11.4 G/DL (13.3-17.7); MEAN CORPUSCULAR HEMOGLOBIN 36 PG (25-34); WHITE BLOOD COUNT 5.2 10^3/uL (4.3-11.0)
[2019-12-29 21:46] LABS: EOSINOPHILS % (AUTO) 5 % (0-10); LYMPHOCYTES % (AUTO) 31 % (12-44); MEAN CORPUSCULAR HGB CONC 34 G/DL (32-36); MEAN CORPUSCULAR VOLUME 105 FL (80-99); MEAN PLATELET VOLUME 10.5 FL (7.4-10.4); MONOCYTES % (AUTO) 11 % (0-12); NEUTROPHILS % (AUTO) 53 % (42-75); PLATELET COUNT 73 10^3/uL (130-400); RED CELL DISTRIBUTION WIDTH 15.3 % (10.0-14.5)
[2019-12-29 21:47] LABS: BASOPHILS % (AUTO) 1 % (0-10); EOSINOPHILS # (AUTO) 0.3 10^3/uL (0.0-0.3); LYMPHOCYTES # (AUTO) 1.6 X 10^3 (1.0-4.0); MONOCYTES # (AUTO) 0.6 X 10^3 (0.0-1.0); NEUTROPHILS # (AUTO) 2.7 X 10^3 (1.8-7.8)
--- NOTE | 2019-12-29 22:01 | Diagnostic Imaging Report ---
INDICATION: Chest pain, history of ascites EXAMINATION: Single view chest dated 12/29/2019 FINDINGS: There are low lung volumes with mild edema not excluded. No effusions, no pneumothorax. Heart is unremarkable. The pulmonary vasculature slightly prominent. IMPRESSION: 1. Suspected pulmonary edema Dictated by: Dictated on workstation # [id number]
[2019-12-29 22:17] LABS: ALANINE AMINOTRANSFERASE 30 U/L (0-55); ALKALINE PHOSPHATASE 169 U/L (40-136); BILIRUBIN,TOTAL 2.9 MG/DL (0.1-1.0); BUN/CREATININE RATIO 8; CALCIUM 7.9 MG/DL (8.5-10.1); CARBON DIOXIDE 24 MMOL/L (21-32); CHLORIDE 105 MMOL/L (98-107); CREATININE SERUM 0.62 MG/DL (0.60-1.30); GFR ESTIMATED > 60; GLUCOSE 105 MG/DL (70-105); POTASSIUM 3.7 MMOL/L (3.6-5.0); SODIUM 138 MMOL/L (135-145)
[2019-12-29 22:18] LABS: ALBUMIN 2.1 GM/DL (3.2-4.5)
[2019-12-29 22:39] LABS: COLOR,URINE AMBER; GLUCOSE, URINE (UA) TRACE (NEGATIVE); KETONES,URINE TRACE (NEGATIVE); NITRITE,URINE POSITIVE (NEGATIVE); PROTEIN,URINE 1+ (NEGATIVE)
[2019-12-29 22:40] LABS: BACTERIA,URINE TRACE /HPF; BILIRUBIN,URINE 2+ (NEGATIVE); CLARITY,URINE SLT CLOUDY; LEUKOCYTE ESTERASE ,URINE NEGATIVE (NEGATIVE); RBC,URINE 25-50 /HPF; WBC,URINE 0-2 /HPF
--- OUTSIDE RECORDS SUMMARY | 2019-12-29 22:40 | XMS REPORT | Continuity of Care Document ---
Author Organization Unknown Address Unknown Phone Unavailable Allergies Active Description Code Type Severity Reaction Onset Reported/Identified Relationship to Patient Clinical Status Yes No Allergy Information Available [id number] Drug Allergy Unknown N/A 019 Yes No Known Drug Allergies [id number] Drug Allergy Unknown N/A 10/07/2018 Medications There is no data. Problems Date Dx Coded Attending Type Code Diagnosis Diagnosed By 05/20/2015 V [id number] Debi cidal [facility] 05/20/2015 P F32.9 Arleth r depressive disorder, single episode, unspecified [facility] 05/20/2015 V F39 Unspec ified mood (affective) disorder [facility] 10/07/2018 JOSEFINA MALONEY MD, Ot F12.1 0 CANNABIS ABUSE, UNCOMPLICATED 10/07/2018 JOSEFINA MALONEY MD, Ot F17.2 10 NICOTINE DEPENDENCE, CIGARETTES, UNCOMPL 10/07/2018 JOSEFINA MALONEY MD Ot K74.6 0 UNSPECIFIED CIRRHOSIS OF LIVER 10/07/2018 JOSEFINA MALONEY MD, Ot K76.6 PORTAL HYPERTENSION 10/07/2018 JOSEFINA MALONEY MD Ot R14.0 ABDOMINAL DISTENSION (GASEOUS) 10/07/2018 JOSEFINA MALONEY MD Ot R18.8 OTHER ASCITES 10/07/2018 JOSEFINA MALONEY MD Ot Z87.1 9 PERSONAL HISTORY OF OTHER DISEASES OF TH 10/10/2018 JOSEFINA MALONEY MD, Ot F12.1 0 CANNABIS ABUSE, UNCOMPLICATED 10/10/2018 JOSEFINA MALONEY MD Ot F17.2 10 NICOTINE DEPENDENCE, CIGARETTES, UNCOMPL 10/10/2018 JOSEFINA MALONEY MD, Ot K74.6 0 UNSPECIFIED CIRRHOSIS OF LIVER 10/10/2018 JOSEFINA MALONEY MD, Ot K76.6 PORTAL HYPERTENSION 10/10/2018 JOSEFINA MALONEY MD Ot R14.0 ABDOMINAL DISTENSION (GASEOUS) 10/10/2018 JOSEFINA MALONEY MD Ot R18.8 OTHER ASCITES 10/10/2018 HAIDER ROSENBERG, JOSEFINA Aguilar Ot Z87.1 9 PERSONAL HISTORY OF OTHER DISEASES OF TH 10/15/2018 SEAN SCHMID D [employer]ACHING [employer]ESSONS Ot J90 PLEURAL EFFUSION, NOT ELSEWHERE CLASSIFI 10/15/2018 SEAN SCHMID D [employer]ACHING [employer] LESSONS Ot R10.9 UNSPECIFIED ABDOMINAL PAIN 10/15/2018 LIZETH SCHMIDISTYN D TEACHING MUSIC LESSONS Ot R14.0 ABDOMINAL DISTENSION (GASEOUS) 10/15/2018 OBDULIA SCHMIDYN D TEACHING MUSIC LESSONS Ot R18.8 OTHER ASCITES 10/17/2018 OBDULIA SCHMIDYN D TEACHING MUSIC LESSONS Ot J90 PLEURAL EFFUSION, NOT ELSEWHERE CLASSIFI 10/17/2018 OBDULIA SCHMIDYN D TEACHING MUSIC LESSONS Ot R10.9 UNSPECIFIED ABDOMINAL PAIN 10/17/2018 LIZETH SCHMIDISTYN D TEACHING MUSIC LESSONS Ot R14.0 ABDOMINAL DISTENSION (GASEOUS) 10/17/2018 LIZETH SCHMIDISTYN D TEACHING MUSIC LESSONS Ot R18.8 OTHER ASCITES 10/20/2018 OBDULIA SCHMIDYN D TEACHING MUSIC LESSONS Ot J90 PLEURAL EFFUSION, NOT ELSEWHERE CLASSIFI 10/20/2018 SEAN SCHMID D TEACHING MUS[employer] LESSONS Ot R10.9 UNSPECIFIED ABDOMINAL PAIN 10/20/2018 OBDULIA SCHMIDYN D TEACHING MUSIC LESSONS Ot R14.0 ABDOMINAL DISTENSION (GASEOUS) 10/20/2018 OBDULIA SCHMIDYN D TEACHING MUSIC LESSONS Ot R18.8 OTHER ASCITES 12/11/2018 SEAN SCHMID D TEACHING MUS[employer] LESSONS Ot J90 PLEURAL EFFUSION, NOT ELSEWHERE CLASSIFI 12/11/2018 OBDULIA SCHMIDYN D TEACHING MUSIC LESSONS Ot R10.9 UNSPECIFIED ABDOMINAL PAIN 12/11/2018 SHARMAINEOBDULIAYN D TEACHING MUSIC LESSONS Ot R14.0 ABDOMINAL DISTENSION (GASEOUS) 12/11/2018 SHARMAINESEAN D TEACHING MUSIC LESSONS Ot R18.8 OTHER ASCITES 11/18/2019 RITU GALLEGO PIPELINES SUPERINTENDENT Ot K76.6 PORTAL HYPERTENSION 11/18/2019 RITU GALLEGO PIPELINES SUPERINTENDENT Ot R06.02 SHORTNESS OF BREATH 11/18/2019 RITU GALLEGO PIPELINES SUPERINTENDENT Ot R18.8 OTHER ASCITES 11/18/2019 RITU GALLEGO PIPELINES SUPERINTENDENT Ot R79.1 ABNORMAL COAGULATION PROFILE 11/20/2019 RITU GALLEGO PIPELINES SUPERINTENDENT Ot K76.6 PORTAL HYPERTENSION 11/20/2019 RITU GALLEGO PIPELINES SUPERINTENDENT Ot R06.02 SHORTNESS OF BREATH 11/20/2019 RITU GALLEGO PIPELINES SUPERINTENDENT Ot R18.8 OTHER ASCITES 11/20/2019 RITU GALLEGO PIPELINES SUPERINTENDENT Ot R79.1 ABNORMAL COAGULATION PROFILE 11/25/2019 RITU GALLEGO APRN Ot K76.6 PORTAL HYPERTENSION 11/25/2019 RITU GALLEGO PIPELINES SUPERINTENDENT Ot R06.02 SHORTNESS OF BREATH 11/25/2019 RITU GALLEGO PIPELINES SUPERINTENDENT Ot R18.8 OTHER ASCITES 11/25/2019 RITU GALLEGO PIPELINES SUPERINTENDENT Ot R79.1 ABNORMAL COAGULATION PROFILE 12/17/2019 VETO HUBBARD DO Ot K70.3 1 ALCOHOLIC CIRRHOSIS OF LIVER WITH ASCITE Procedures There is no data. Results Test Result Range CBC w/MANUAL DIFF - 09/08/18 14:27 WHITE BLOOD CELL COUNT 5.4 Thousand/uL 3 .8-10.8 RED BLOOD CELL COUNT 4.02 Million/uL 4.2 0-5.80 HEMOGLOBIN 13.7 g/dL 13.2-17.1 HEMATOCRIT 39.2 % 38.5-50.0 MCV 97.5 fL 80.0-100.0 MCH 34.1 pg 27.0-33.0 MCHC 34.9 g/dL 32.0-36.0 RDW 13.9 % 11.0-15.0 PLATELET COUNT 74 Thousand/uL 140-400 MPV 11.9 fL 7.5-12.5 DIFFERENTIAL, MANUAL - 09/08/18 14:27 ABSOLUTE NEUTROPHILS 3618 cells/uL 1500- 7800 ABSOLUTE MONOCYTES 470 cells/uL 200-950 ABSOLUTE EOSINOPHILS 211 cells/uL 15-500 ABSOLUTE BASOPHILS 0 cells/uL 0-200 NEUTROPHILS 67.0 % NRG LYMPHOCYTES 19.4 % NRG MONOCYTES 8.7 % NRG EOSINOPHILS 3.9 % NRG BASOPHILS 0 % NRG ABSOLUTE BAND NEUTROPHILS 54 cells/uL 0- 750 ABSOLUTE LYMPHOCYTES 1048 cells/uL 850-3 900 BAND NEUTROPHILS 1.0 % NRG PLATELET ESTIMATION DECREASED ADEQUATE Urine drug screening test - 10/07/18 18: 38 Urine phencyclidine detection by screening method NEGATIVE NEGATIVE Urine benzodiazepines detection by screening method NEGATIVE NEGATIVE Urine cocaine detection NEGATIVE NEGATI VE Urine amphetamines detection by screening method N EGATIVE NEGATIVE Urine methamphetamine detection by screening method NEGATIVE NEGATIVE Urine cannabinoids detection by screening method P OSITIVE NEGATIVE Urine opiates detection by screening method NEGATI VE NEGATIVE Urine barbiturates detection NEGATIVE N EGATIVE Screening urine tricyclic antidepressants detection NEGATIVE NEGATIVE Urine methadone detection by screening method NEGA TIVE NEGATIVE Urine oxycodone detection NEGATIVE NEGA TIVE Urine propoxyphene detection NEGATIVE N EGATIVE Complete urinalysis with reflex to cultu re - 10/07/18 18:38 Urine color determination ORANGE NRG Urine clarity determination CLEAR NR G Urine pH measurement by test strip 6.0 5-9 Specific gravity of urine by test strip 1.025 1.016-1.022 Urine protein assay by test strip, semi-quantitative TRACE NEGATIVE Urine glucose detection by automated test strip TR JAVI NEGATIVE Erythrocytes detection in urine sediment by light micr oscopy NEGATIVE NEGATIVE Urine ketones detection by automated test strip TR JAVI NEGATIVE Urine nitrite detection by test strip POSITIVE NEGATIVE Urine total bilirubin detection by test strip 2+ NEGATIVE Urine urobilinogen measurement by automated test strip (mass/volume) >= mg/dL NORMAL Urine leukocyte esterase detection by dipstick NEG ATIVE NEGATIVE Automated urine sediment erythrocyte cou nt by microscopy (number/high power field) [HPF] NRG Automated urine sediment leukocyte count by microscopy (number/high power field) [HPF] NRG Bacteria detection in urine sediment by light microsco py NEGATIVE NRG Squamous epithelial cells detection in u rine sediment by light microscopy NONE NRG Crystals detection in urine sediment by light microsco py NONE NRG Casts detection in urine sediment by light microscopy NONE NRG Mucus detection in urine sediment by light microscopy LARGE NRG Complete urinalysis with reflex to culture YES NRG Bacterial urine culture - 10/07/18 18:38 Bacterial urine culture NG NRG Complete blood count (CBC) with automate d white blood cell (WBC) differential - 10/07/18 18:55 Blood leukocytes automated count (number/volume) 4.2 10*3/uL 4.3-11.0 Blood erythrocytes automated count (number/volume) 3.52 10*6/uL 4.35-5.85 Venous blood hemoglobin measurement (mass/volume) 12.2 g/dL 13.3-17.7 Blood hematocrit (volume fraction) 36 % 40-54 Automated erythrocyte mean corpuscular volume 103 [foz_us] 80-99 Automated erythrocyte mean corpuscular h emoglobin (mass per erythrocyte) 35 pg 25-34 Automated erythrocyte mean corpuscular h emoglobin concentration measurement (mass/volume) 34 g/dL 32-36 Automated erythrocyte distribution width ratio 15. 7 % 10.0- 14.5 Automated blood platelet count (count/volume) 64 1 0*3/uL 130-400 Automated blood platelet mean volume measurement 10.1 [foz_us] 7.4-10.4 Automated blood neutrophils/100 leukocytes 45 % 42-75 Automated blood lymphocytes/100 leukocytes 42 % 12-44 Blood monocytes/100 leukocytes 9 % 0-12 Automated blood eosinophils/100 leukocytes 3 % 0-10 Automated blood basophils/100 leukocytes 1 % 0-10 Blood neutrophils automated count (number/volume) 1.9 10*3 1.8-7.8 Blood lymphocytes automated count (number/volume) 1.8 10*3 1.0-4.0 Blood monocytes automated count (number/volume) 0. 4 10*3 0.0-1.0 Automated eosinophil count 0.1 10*3/uL 0 .0-0.3 Automated blood basophil count (count/volume) 0.0 10*3/uL 0.0-0.1 Serum or plasma ethanol measurement (mas s/volume) - 10/07/18 18:55 Serum or plasma ethanol measurement (mass/volume) < mg/dL <10 PT panel in platelet poor plasma by coag ulation assay - 10/07/18 18:55 Prothrombin time (PT) in platelet poor plasma by coagu lation assay 19.6 s 12.2-14.7 INR in platelet poor plasma or blood by coagulation as say 1.7 0.8-1.4 Activated partial thromboplastin time (a PTT) in platelet poor plasma bycoagulation assay - 10/07/18 18:55 Activated partial thromboplastin time (a PTT) in platelet poor plasma bycoagulation assay 39 s 24-35 Comprehensive metabolic panel - 10/07/18 18:55 Serum or plasma sodium measurement (moles/volume) 138 mmol/L 135-145 Serum or plasma potassium measurement (moles/volume) 3.5 mmol/L 3.6-5.0 Serum or plasma chloride measurement (moles/volume) 104 mmol/L 98-107 Carbon dioxide 25 mmol/L 21-32 Serum or plasma anion gap determination (moles/volume) 9 mmol/L 5-14 Serum or plasma urea nitrogen measurement (mass/volume ) 6 mg/dL 7-18 Serum or plasma creatinine measurement (mass/volume) 0.64 mg/dL 0.60-1.30 Serum or plasma urea nitrogen/creatinine mass ratio 9 NRG Serum or plasma creatinine measurement w ith calculation of estimated glomerular filtration rate > NRG Serum or plasma glucose measurement (mass/volume) 79 mg/dL 70-105 Serum or plasma calcium measurement (mass/volume) 7.5 mg/dL 8.5-10.1 Serum or plasma total bilirubin measurement (mass/volu me) 3.6 mg/dL 0.1-1.0 Serum or plasma alkaline phosphatase gopal surement (enzymatic activity/volume) 170 U/L 40-136 Serum or plasma aspartate aminotransfera se measurement (enzymatic activity/volume) 48 U/L 5-34 Serum or plasma alanine aminotransferase measurement (enzymatic activity/volume) 29 U/L 0-55 Serum or plasma protein measurement (mass/volume) 5.8 g/dL 6.4-8.2 Serum or plasma albumin measurement (mass/volume) 2.5 g/dL 3.2-4.5 CALCIUM CORRECTED 8.7 mg/dL 8.5-10.1 Lipase - 10/07/18 18:55 Lipase 67 U/L 8-78 Complete urinalysis with reflex to cultu re - 02/12/19 15:35 Urine color determination DARK YELLOW N RG Urine clarity determination CLEAR NR G Urine pH measurement by test strip 6.5 5-9 Specific gravity of urine by test strip 1.020 1.016-1.022 Urine protein assay by test strip, semi-quantitative NEGATIVE NEGATIVE Urine glucose detection by automated test strip NE GATIVE NEGATIVE Erythrocytes detection in urine sediment by light micr oscopy NEGATIVE NEGATIVE Urine ketones detection by automated test strip NE GATIVE NEGATIVE Urine nitrite detection by test strip NEGATIVE NEGATIVE Urine total bilirubin detection by test strip NEGA TIVE NEGATIVE Urine urobilinogen measurement by automated test strip (mass/volume) 2.0 mg/dL NORMAL Urine leukocyte esterase detection by dipstick NEG ATIVE NEGATIVE Automated urine sediment erythrocyte cou nt by microscopy (number/high power field) NONE NRG Automated urine sediment leukocyte count by microscopy (number/high power field) RARE NRG Bacteria detection in urine sediment by light microsco py NEGATIVE NRG Squamous epithelial cells detection in u rine sediment by light microscopy NONE NRG Crystals detection in urine sediment by light microsco py NONE NRG Casts detection in urine sediment by light microscopy NONE NRG Mucus detection in urine sediment by light microscopy SMALL NRG Complete urinalysis with reflex to culture NO NRG Urine drug screening test - 02/12/19 15: 35 Urine phencyclidine detection by screening method NEGATIVE NEGATIVE Urine benzodiazepines detection by screening method NEGATIVE NEGATIVE Urine cocaine detection NEGATIVE NEGATI VE Urine amphetamines detection by screening method N EGATIVE NEGATIVE Urine methamphetamine detection by screening method NEGATIVE NEGATIVE Urine cannabinoids detection by screening method P OSITIVE NEGATIVE Urine opiates detection by screening method NEGATI VE NEGATIVE Urine barbiturates detection NEGATIVE N EGATIVE Screening urine tricyclic antidepressants detection NEGATIVE NEGATIVE Urine methadone detection by screening method NEGA TIVE NEGATIVE Urine oxycodone detection NEGATIVE NEGA TIVE Urine propoxyphene detection NEGATIVE N EGATIVE Complete blood count (CBC) with automate d white blood cell (WBC) differential - 02/12/19 15:48 Blood leukocytes automated count (number/volume) 4.6 10*3/uL 4.3-11.0 Blood erythrocytes automated count (number/volume) 3.63 10*6/uL 4.35-5.85 Venous blood hemoglobin measurement (mass/volume) 12.8 g/dL 13.3-17.7 Blood hematocrit (volume fraction) 39 % 40-54 Automated erythrocyte mean corpuscular volume 107 [foz_us] 80-99 Automated erythrocyte mean corpuscular h emoglobin (mass per erythrocyte) 35 pg 25-34 Automated erythrocyte mean corpuscular h emoglobin concentration measurement (mass/volume) 33 g/dL 32-36 Automated erythrocyte distribution width ratio 14. 6 % 10.0- 14.5 Automated blood platelet count (count/volume) 70 1 0*3/uL 130-400 Automated blood platelet mean volume measurement 10.0 [foz_us] 7.4-10.4 Automated blood neutrophils/100 leukocytes 54 % 42-75 Automated blood lymphocytes/100 leukocytes 33 % 12-44 Blood monocytes/100 leukocytes 9 % 0-12 Automated blood eosinophils/100 leukocytes 4 % 0-10 Automated blood basophils/100 leukocytes 0 % 0-10 Blood neutrophils automated count (number/volume) 2.5 10*3 1.8-7.8 Blood lymphocytes automated count (number/volume) 1.5 10*3 1.0-4.0 Blood monocytes automated count (number/volume) 0. 4 10*3 0.0-1.0 Automated eosinophil count 0.2 10*3/uL 0 .0-0.3 Automated blood basophil count (count/volume) 0.0 10*3/uL 0.0-0.1 Comprehensive metabolic panel - 02/12/19 15:48 Serum or plasma sodium measurement (moles/volume) 141 mmol/L 135-145 Serum or plasma potassium measurement (moles/volume) 4.0 mmol/L 3.6-5.0 Serum or plasma chloride measurement (moles/volume) 106 mmol/L 98-107 Carbon dioxide 25 mmol/L 21-32 Serum or plasma anion gap determination (moles/volume) 10 mmol/L 5-14 Serum or plasma urea nitrogen measurement (mass/volume ) 6 mg/dL 7-18 Serum or plasma creatinine measurement (mass/volume) 0.64 mg/dL 0.60-1.30 Serum or plasma urea nitrogen/creatinine mass ratio 9 NRG Serum or plasma creatinine measurement w ith calculation of estimated glomerular filtration rate > NRG Serum or plasma glucose measurement (mass/volume) 84 mg/dL 70-105 Serum or plasma calcium measurement (mass/volume) 8.2 mg/dL 8.5-10.1 Serum or plasma total bilirubin measurement (mass/volu me) 1.9 mg/dL 0.1-1.0 Serum or plasma alkaline phosphatase gopal surement (enzymatic activity/volume) 170 U/L 40-136 Serum or plasma aspartate aminotransfera se measurement (enzymatic activity/volume) 60 U/L 5-34 Serum or plasma alanine aminotransferase measurement (enzymatic activity/volume) 37 U/L 0-55 Serum or plasma protein measurement (mass/volume) 6.5 g/dL 6.4-8.2 Serum or plasma albumin measurement (mass/volume) 2.5 g/dL 3.2-4.5 CALCIUM CORRECTED 9.4 mg/dL 8.5-10.1 Serum or plasma salicylates measurement (mass/volume) - 02/12/19 15:48 Serum or plasma salicylates measurement (mass/volume) < mg/dL 5.0-20.0 Serum or plasma acetaminophen measuremen t (mass/volume) - 02/12/19 15:48 Serum or plasma acetaminophen measurement (mass/volume ) < ug/mL 10-30 Serum or plasma ethanol measurement (mas s/volume) - 02/12/19 15:48 Serum or plasma ethanol measurement (mass/volume) < mg/dL <10 LIPASE - 05/20/19 14:34 LIPASE 58 U/L 7-60 CULTURE, URINE - 06/11/19 15:43 CULTURE, URINE, ROUTINE NRG CMP - 07/22/19 15:23 GLUCOSE 82 mg/dL 65-139 UREA NITROGEN (BUN) 6 mg/dL 7-25 CREATININE 0.62 mg/dL 0.60-1.35 eGFR NON-AFR. [place] 125 mL/min/1.73m2 > OR = 60 eGFR 145 mL/min/1.73m2 > OR = 60 BUN/CREATININE RATIO 10 (calc) 6-22 SODIUM 137 mmol/L 135-146 POTASSIUM 3.4 mmol/L 3.5-5.3 CHLORIDE 109 mmol/L 98-110 CARBON DIOXIDE 26 mmol/L 20-32 CALCIUM 7.7 mg/dL 8.6-10.3 PROTEIN, TOTAL 6.3 g/dL 6.1-8.1 ALBUMIN 2.2 g/dL 3.6-5.1 GLOBULIN 4.1 g/dL (calc) 1.9-3.7 ALBUMIN/GLOBULIN RATIO 0.5 (calc) 1.0-2. 5 BILIRUBIN, TOTAL 2.4 mg/dL 0.2-1.2 ALKALINE PHOSPHATASE 210 U/L 40-115 AST 46 U/L 10-40 ALT 37 U/L 9-46 CBC - 07/22/19 15:23 WHITE BLOOD CELL COUNT 4.9 Thousand/uL 3 .8-10.8 RED BLOOD CELL COUNT 3.65 Million/uL 4.2 0-5.80 HEMOGLOBIN 12.5 g/dL 13.2-17.1 HEMATOCRIT 35.4 % 38.5-50.0 MCV 97.0 fL 80.0-100.0 MCH 34.2 pg 27.0-33.0 MCHC 35.3 g/dL 32.0-36.0 RDW 13.3 % 11.0-15.0 PLATELET COUNT 65 Thousand/uL 140-400 MPV 11.9 fL 7.5-12.5 ABSOLUTE NEUTROPHILS 2205 cells/uL 1500- 7800 ABSOLUTE LYMPHOCYTES 1558 cells/uL 850-3 900 ABSOLUTE MONOCYTES 588 cells/uL 200-950 ABSOLUTE EOSINOPHILS 510 cells/uL 15-500 ABSOLUTE BASOPHILS 39 cells/uL 0-200 NEUTROPHILS 45 % NRG LYMPHOCYTES 31.8 % NRG MONOCYTES 12.0 % NRG EOSINOPHILS 10.4 % NRG BASOPHILS 0.8 % NRG LIPASE - 07/22/19 15:23 LIPASE 50 U/L 7-60 PLATELET ESTIMATION - 07/22/19 15:23 PLATELET ESTIMATION DECREASED ADEQUATE CMP - 10/19/19 14:51 GLUCOSE 98 mg/dL 65-99 UREA NITROGEN (BUN) 4 mg/dL 7-25 CREATININE 0.65 mg/dL 0.60-1.35 eGFR NON-AFR. [place] 122 mL/min/1.73m2 > OR = 60 eGFR 141 mL/min/1.73m2 > OR = 60 BUN/CREATININE RATIO 6 (calc) 6-22 SODIUM 137 mmol/L 135-146 POTASSIUM 3.3 mmol/L 3.5-5.3 CHLORIDE 106 mmol/L 98-110 CARBON DIOXIDE 28 mmol/L 20-32 CALCIUM 7.5 mg/dL 8.6-10.3 PROTEIN, TOTAL 6.2 g/dL 6.1-8.1 ALBUMIN 2.2 g/dL 3.6-5.1 GLOBULIN 4.0 g/dL (calc) 1.9-3.7 ALBUMIN/GLOBULIN RATIO 0.6 (calc) 1.0-2. 5 BILIRUBIN, TOTAL 3.3 mg/dL 0.2-1.2 ALKALINE PHOSPHATASE 192 U/L 36-130 AST 38 U/L 10-40 ALT 31 U/L 9-46 CBC w/MANUAL DIFF - 10/19/19 14:51 WHITE BLOOD CELL COUNT 4.8 Thousand/uL 3 .8-10.8 RED BLOOD CELL COUNT 3.56 Million/uL 4.2 0-5.80 HEMOGLOBIN 12.4 g/dL 13.2-17.1 HEMATOCRIT 35.1 % 38.5-50.0 MCV 98.6 fL 80.0-100.0 MCH 34.8 pg 27.0-33.0 MCHC 35.3 g/dL 32.0-36.0 RDW 14.2 % 11.0-15.0 PLATELET COUNT 71 Thousand/uL 140-400 MPV 11.2 fL 7.5-12.5 ABSOLUTE NEUTROPHILS 3024 cells/uL 1500- 7800 ABSOLUTE MONOCYTES 336 cells/uL 200-950 ABSOLUTE EOSINOPHILS 192 cells/uL 15-500 ABSOLUTE BASOPHILS 48 cells/uL 0-200 NEUTROPHILS 63.0 % NRG LYMPHOCYTES 25.0 % NRG MONOCYTES 7.0 % NRG EOSINOPHILS 4.0 % NRG BASOPHILS 1.0 % NRG ABSOLUTE LYMPHOCYTES 1200 cells/uL 850-3 900 PLATELET ESTIMATION DECREASED ADEQUATE CBC MORPHOLOGY NORMAL COMMENT(S) NRG D-DIMER - 10/19/19 14:51 D-DIMER, QUANTITATIVE 9.66 mcg/mL FEU <0 .50 COVID-19 ([facility]) - 11/10/19 11:55 PT/INR - 11/18/19 11:36 INR 1.7 NRG PT 17.4 sec 9.0-11.5 AMMONIA - 11/18/19 11:36 AMMONIA (P) 102 umol/L < OR = 72 Body fluid cell count - 11/27/19 11:21 Specimen source identification of body fluid PERIT ON NRG Evaluation of color of body fluid YELLOW NRG Determination of appearance of body fluid SLT CLDY NRG Body fluid leukocytes count (number/volume) 155 /u L NRG Body fluid erythrocytes count (number/volume) 500 /uL NRG Manual body fluid polymorphonuclear cells/100 leukocyt es 33 % NRG Manual body fluid mononuclear cells/100 leukocytes 3 % NRG Manual body fluid lymphocytes/100 leukocytes 60 % NRG Manual body fluid other cell count (number) 4 % NRG Glucose body fluid - 11/27/19 11:21 Glucose body fluid 98 mg/dL NRG Body fluid total protein measurement - 0 11/27/19 11:21 Body fluid total protein measurement < g/dL NRG Body fluid/serum or plasma lactate dehyd rogenase (LDH) ratio - 11/27/19 11:21 Body fluid/serum or plasma lactate dehydrogenase (LDH) ratio 49 U/L NRG Amylase body fluid - 11/27/19 11:21 Amylase body fluid 14 U/L NRG Creatinine body fluid - 11/27/19 11:21 Creatinine body fluid 0.50 mg/dL NRG Bacteria identification in isolate by an aerobe culture - 11/27/19 11:21 Bacteria identification in isolate by anaerobe culture NOANA NRG Gram stain microscopy - 11/27/19 11:21 Gram stain microscopy No bacteria seen NRG Bacterial body fluid culture - 11/27/19 11:21 Bacterial body fluid culture NG N RG Encounters ACCT No. Visit Date/Time Discharge Status Pt. Type Provider Facility Loc./Unit Complaint [id number] 12/08/2019 16:00:00 12/08/2019 23:59:5 9 CLS Outpatient KURTIS AVILA [facility]CJORGE SOTELO [id number] 11/18/2019 10:40:00 Document Registration [id number] 11/10/2019 12:00:00 Document Registration [id number] 10/19/2019 14:20:00 Document Registration [id number] 07/22/2019 14:40:00 Document Registration [id number] 06/11/2019 14:40:00 Document Registration [id number] 05/20/2019 14:00:00 Document Registration [id number] 09/08/2018 13:40:00 Document Registration [id number] 12/11/2019 10:27:00 23:59:59 CLS Outpatient VETO HUBBARD DO [facility] RAD ALCOHOLIC CIRRHOSIS OF LIVER W/ ASCITES [id number] 11/27/2019 10:12:00 23:59:59 CLS Outpatient VETO HUBBARD DO [facility] RAD ALCHOLIC CIRRHOSIS OF L IVER WITH ASCITES [id number] 10/20/2019 13:45:00 23:59:59 CLS Outpatient RITU GALLEGO APRN [facility] RAD FS ELEVATED D-DIMER,SOB. [id number] 10/20/2019 15:34:00 15:34:00 CAN Preadmit RITU GALLEGO APRN [facility] RAD FS ELEVATED D-DIMER,SOB [id number] 02/12/2019 15:19:00 21:15:00 DIS Emergency HAIDER ROSENBERG, JOSEFINA Aguilar [facility] ER FS MENTAL HEALTH SCREENING [id number] 10/14/2018 10:37:00 23:59:59 CLS Outpatient SEAN SCHMID [facility] RAD FS ABD BLOATING [id number] 10/07/2018 17:16:00 04/02/2 019 23:35:00 DIS Emergency HAIDER ROSENBERG, JOSEFINA Mcgraw [facility] ER FS BLOATING, ABD PAIN [id number] 05/17/2015 18:44:00 Document Registration
[2019-12-29 22:43] LABS: AMPHETAMINE SCREEN, URINE NEGATIVE (NEGATIVE); BARBITURATE SCREEN URINE NEGATIVE (NEGATIVE); BENZODIAZEPINES SCREEN URINE NEGATIVE (NEGATIVE); CANNABINOID SCREEN, URINE POSITIVE (NEGATIVE); COCAINE SCREEN URINE NEGATIVE (NEGATIVE); METHADONE STAT NEGATIVE (NEGATIVE); METHAMPHETAMINE SCREEN URINE S NEGATIVE (NEGATIVE); OPIATE SCREEN URINE NEGATIVE (NEGATIVE); OXYCODONE STAT NEGATIVE (NEGATIVE); PROPOXYPHENE STAT NEGATIVE (NEGATIVE); TRICYCLIC ANTIDEPRESSANTS SCRE NEGATIVE (NEGATIVE)
[2019-12-29] MEDS ORDERED: cefTRIAXone FOR IV USE 500 MG in WATER (STERILE) FOR INJECTION 5 ML IV ONE (23:00)
[2019-12-29] MEDS ORDERED: FUROSEMIDE 40 MG/4 ML INJ (LASIX) IVP ONE (23:00)
--- OUTSIDE RECORDS SUMMARY | 2019-12-29 23:33 | XMS REPORT | Continuity of Care Document ---
Author Organization Unknown Address Unknown Phone Unavailable Allergies Active Description Code Type Severity Reaction Onset Reported/Identified Relationship to Patient Clinical Status Yes No Allergy Information Available [id number] Drug Allergy Unknown N/A 019 Yes No Known Drug Allergies [id number] Drug Allergy Unknown N/A 10/07/2018 Medications There is no data. Problems Date Dx Coded Attending Type Code Diagnosis Diagnosed By 05/20/2015 V [id number] Debi cidal [facility] 05/20/2015 P F32.9 Arleth r depressive disorder, single episode, unspecified [facility] 05/20/2015 V F39 Unspec ified mood (affective) disorder [facility] 10/07/2018 JOSEFINA MALONEY MD, Ot F12.1 0 [...] DISEASES OF TH 10/15/2018 SEAN SCHMID D REBEAMER Ot J90 PLEURAL EFFUSION, NOT ELSEWHERE CLASSIFI 10/15/2018 SEAN SCHMID D REBEAMER Ot R10.9 UNSPECIFIED ABDOMINAL PAIN 10/15/2018 LIZETH SCHMIDISTYN D REBEAMER Ot R14.0 ABDOMINAL DISTENSION (GASEOUS) 10/15/2018 OBDULIA SCHMIDYN D REBEAMER Ot R18.8 OTHER ASCITES 10/17/2018 OBDULIA SCHMIDYN D REBEAMER Ot J90 PLEURAL EFFUSION, NOT ELSEWHERE CLASSIFI 10/17/2018 OBDULIA SCHMIDYN D REBEAMER Ot R10.9 UNSPECIFIED ABDOMINAL PAIN 10/17/2018 LIZETH SCHMIDISTYN D REBEAMER Ot R14.0 ABDOMINAL DISTENSION (GASEOUS) 10/17/2018 LIZETH SCHMIDISTYN D REBEAMER Ot R18.8 OTHER ASCITES 10/20/2018 OBDULIA SCHMIDYN D REBEAMER Ot J90 PLEURAL EFFUSION, NOT ELSEWHERE CLASSIFI 10/20/2018 SEAN SCHMID D REBEAMER Ot R10.9 UNSPECIFIED ABDOMINAL PAIN 10/20/2018 OBDULIA SCHMIDYN D REBEAMER Ot R14.0 ABDOMINAL DISTENSION (GASEOUS) 10/20/2018 OBDULIA SCHMIDYN D REBEAMER Ot R18.8 OTHER ASCITES 12/11/2018 SEAN SCHMID D REBEAMER Ot J90 PLEURAL EFFUSION, NOT ELSEWHERE CLASSIFI 12/11/2018 OBDULIA SCHMIDYN D REBEAMER Ot R10.9 UNSPECIFIED ABDOMINAL PAIN 12/11/2018 SHARMAINEOBDULIAYN D REBEAMER Ot R14.0 ABDOMINAL DISTENSION (GASEOUS) 12/11/2018 SHARMAINESEAN D REBEAMER Ot R18.8 OTHER ASCITES 11/18/2019 RITU GALLEGO ACCURACY EXPERT Ot K76.6 PORTAL HYPERTENSION 11/18/2019 RITU GALLEGO ACCURACY EXPERT Ot R06.02 SHORTNESS OF BREATH 11/18/2019 RITU GALLEGO ACCURACY EXPERT Ot R18.8 OTHER ASCITES 11/18/2019 RITU GALLEGO ACCURACY EXPERT Ot R79.1 ABNORMAL COAGULATION PROFILE 11/20/2019 RITU GALLEGO ACCURACY EXPERT Ot K76.6 PORTAL HYPERTENSION 11/20/2019 RITU GALLEGO ACCURACY EXPERT Ot R06.02 SHORTNESS OF BREATH 11/20/2019 RITU GALLEGO ACCURACY EXPERT Ot R18.8 OTHER ASCITES 11/20/2019 RITU GALLEGO ACCURACY EXPERT Ot R79.1 ABNORMAL COAGULATION PROFILE 11/25/2019 RITU GALLEGO APRN Ot K76.6 PORTAL HYPERTENSION 11/25/2019 RITU GALLEGO ACCURACY EXPERT Ot R06.02 SHORTNESS OF BREATH 11/25/2019 RITU GALLEGO ACCURACY EXPERT Ot R18.8 OTHER ASCITES 11/25/2019 RITU GALLEGO ACCURACY EXPERT Ot R79.1 ABNORMAL COAGULATION PROFILE 12/17/2019 VETO [...] 7-25 CREATININE 0.62 mg/dL 0.60-1.35 eGFR NON-AFR. ANGOLAN 125 mL/min/1.73m2 > OR = 60 eGFR [...] 7-25 CREATININE 0.65 mg/dL 0.60-1.35 eGFR NON-AFR. ANGOLAN 122 mL/min/1.73m2 > OR = 60 eGFR [...] Status Pt. Type Provider Facility Loc./Unit Complaint [id number] 12/08/2019 16:00:00 12/08/2019 23:59:5 9 CLS Outpatient KURTIS AVILA CHCJORGE SOTELO [id number] 11/18/2019 10:40:00 Document Registration [id number] 11/10/2019 12:00:00 Document Registration [id number] 10/19/2019 14:20:00 Document Registration [id number] 07/22/2019 14:40:00 Document Registration [id number] 06/11/2019 14:40:00 Document Registration [id number] 05/20/2019 14:00:00 Document Registration [id number] 09/08/2018 13:40:00 Document Registration [id number] 12/11/2019 10:27:00 23:59:59 CLS Outpatient VETO HUBBARD DO [facility] RAD ALCOHOLIC CIRRHOSIS OF LIVER W/ ASCITES [id number] 11/27/2019 10:12:00 23:59:59 CLS Outpatient VETO HUBBARD DO [facility] RAD ALCHOLIC CIRRHOSIS OF L IVER WITH ASCITES [id number] 10/20/2019 13:45:00 23:59:59 CLS Outpatient RITU GALLEGO APRN [facility] RAD FS ELEVATED D-DIMER,SOB. [id number] 10/20/2019 15:34:00 15:34:00 CAN Preadmit RITU GALLEGO APRN [facility] RAD FS ELEVATED D-DIMER,SOB [id number] 02/12/2019 15:19:00 21:15:00 DIS Emergency HAIDER ROSENBERG, JOSEFINA Aguilar [facility] ER FS MENTAL HEALTH SCREENING [id number] 10/14/2018 10:37:00 23:59:59 CLS Outpatient SEAN SCHMID [facility] RAD FS ABD BLOATING [id number] 10/07/2018 17:16:00 04/02/2 019 23:35:00 DIS Emergency HAIDER ROSENBEGR, JOSEFINA [facility] ER FS BLOATING, ABD PAIN [id number] 05/17/2015 18:44:00 Document Registration
[2019-12-30] VITALS (8 sets, daily range): BP systolic 82–129; BP diastolic 57–79
--- NOTE | 2019-12-30 00:40 | NUR ---
ABDELRAHMAN REEDER Marco A admitted to room 405-1, with an admitting diagnosis of PULMONARY EDEMA, AND ASCITES , on 12/29/19 from [facility] via EMS, accompanied by EMS STAFF. ABDELRAHMAN REEDER introduced to surroundings, call light, bed controls, phone, TV, temperature control, lights, meal times, smoking policy, visitor policy, side rail policy, bathrooms and showers. Patient Rights given to patient in the handbook. ABDELRAHMAN REEDER verbalizes understanding that [facility] is not responsible for the loss or damage to any personal effects or valuables that are kept in the patients posession during their hospitalization. ABDELRAHMAN REEDER verbalizes understanding of Interdisciplinary Patient Education. Patient and/or family were informed about the Rapid Response Team and its purpose.
[2019-12-30 09:36] LABS: HEMOGLOBIN 11.1 G/DL (13.3-17.7); MEAN PLATELET VOLUME 10.2 FL (7.4-10.4); RED CELL DISTRIBUTION WIDTH 15.8 % (10.0-14.5); WHITE BLOOD COUNT 4.8 10^3/uL (4.3-11.0)
[2019-12-30 09:56] LABS: INR 2.1 (0.8-1.4); PROTHROMBIN TIME PATIENT 24.1 SEC (12.2-14.7)
[2019-12-30 10:06] LABS: ALANINE AMINOTRANSFERASE 30 U/L (0-55); ALKALINE PHOSPHATASE 166 U/L (40-136); BILIRUBIN,TOTAL 2.7 MG/DL (0.1-1.0); BUN/CREATININE RATIO 9; CALCIUM 7.3 MG/DL (8.5-10.1); CARBON DIOXIDE 26 MMOL/L (21-32); CHLORIDE 108 MMOL/L (98-107); CREATININE SERUM 0.64 MG/DL (0.60-1.30); GFR ESTIMATED > 60; GLUCOSE 72 MG/DL (70-105); POTASSIUM 3.4 MMOL/L (3.6-5.0); SODIUM 138 MMOL/L (135-145); TOTAL PROTEIN 6.1 GM/DL (6.4-8.2)
[2019-12-30] MEDS ORDERED: ZOLP10TA PO (10:41)
[2019-12-30] MEDS ORDERED: FURO-124 PO (10:41)
[2019-12-30] MEDS ORDERED: SPIR100T4 PO (10:41)
[2019-12-30] MEDS ORDERED: CYPR4TAB41 PO (10:41)
[2019-12-30] MEDS ORDERED: TRAM50TA3 PO (10:41)
--- NOTE | 2019-12-30 10:49 | NUR ---
SPOKE WITH THE PT AND WENT THRU THE EXT MED HISTORY TO COMPLETE THE MED REC SPIROLACTONE 100MG LAST FILLED 04-02-2020 #90/90DS- PT SAID HE WAS IN A MENTAL HEALTH HOSPITAL/ FACILITY FOR AWHILE SO IT WAS GIVEN TO HIM THERE BUT DOES ADMIT TO SOMETIMES FORGETTING TO TAKE IT. I DID DOCUMENT THE PAST DUE FILL ON THE MED REC PT DENIES TAKING ANY PRESCRIPTION MEDICATION Addendum: 12/30/19 at 1105 by CANDELARIA OLMOS CPhT VRAYLAR 3MG LAST FILLED 11-04-2019 #30/30DS- PT ADMITS HE HAD QUIT TAKING HIS MEDS FOR AWHILE BUT IS CURRENTLY TAKING. I DID DOCUMENT THE PAST DUE FILL ON THE MED REC Addendum: 12/30/19 at 1108 by CANDELARIA OLMOS CPhT PT DENIES TAKING ANY OTC MEDS
[2019-12-30] MEDS ORDERED: CARI3CAP PO (11:03)
--- NOTE | 2019-12-30 13:20 | NUR ---
CM/SS visited with the patient for discharge planning. Plan: On discharge patient would leave with Hospice. Patient reports that Dr. Hinojosa and Dr. Ivy set him up prior to this admission. Hospice: The patient reports that he was set up with [facility]. CM/SS contacted [facility] and spoke with Rachelle to inform her of patient being in hospital. She verbalized understanding and stated they will need new hospice orders. CM/SS informed the patients physician. Patient may discharge back home tomorrow. The patient is currently in the process of filing for social security disability and has [facility] Medicaid for medical insurance. The patients Rodríguez was at bedside and stated that she too is on social security disability and receives around 800 dollars a month. They report that in the house hold they have 4 people living on 800 dollars (patient, rodríguez, daughter, grand daughter). The patient states that he does have mental health issues and sees a therapist at [facility]. His therapist is Boom Ramírez and his psychologist is Alicia Montoya. CM/SS will continue to follow with patient for discharge planning.
[2019-12-30] MEDS ORDERED: ZOLPIDEM 5 MG (AMBIEN) TAB PO PRN (14:30)
--- NOTE | 2019-12-30 14:45 | History & Physical ---
HPI History of Present Illness: 39 yo male with end stage cirrhosis and recurrent need for paracentesis, presented to ER yesterday due to chest/epigastric pain. He has been working on getting on hospice, but they thought he had to have his paracentesis drain in before hospice could start, so they were working on that. Source: patient, family Date seen by provider: Dec 30, 2019 Time Seen by Provider: 11:30 Attending Physician Tessa Galarza MD PCP [facility] Consult Date of Admission Dec 29, 2019 at 23:00 Home Medications Home Medications Reviewed patient Home Medication Reconciliation performed by pharmacy medication reconciliations motion picture camera lens technician and/or nursing. Patients Allergies have been reviewed. Allergies Coded Allergies: No Known Drug Allergies (Unverified , 10/07/18) LUV-Sgcnwf-Hibrlp Hx Patient Social History Alcohol Use: Denies Use Recreational Drug Use: Yes Drug of Choice: marijuana Smoking Status: Current Everyday Smoker Type Used: Cigarettes 2nd Hand Smoke Exposure: Yes Recent Foreign Travel: No Contact w/other who traveled: No Recent Hopitalizations: No Recent Infectious Disease Expo: No Immunizations Up To Date Date of Pneumonia Vaccine: Dec 29, 2017 Past Medical History PMHx: Cirrhosis Alcoholism Hepatitis C Schizophrenia Bipolar disorder Family Medical History Significant Family History: No Pertinent Family Hx Review of Systems ([facility]) Constitutional: No fever EENTM: No nose congestion, No throat pain Respiratory: cough (chronic intermittent he relates to smoking) Cardiovascular: see HPI Gastrointestinal: No abdominal pain, No constipation, No diarrhea, No nausea, No vomiting Genitourinary: No dysuria Skin: No rash Reviewed Test Results Reviewed Test Results Lab Laboratory Tests Test 12/29/19 21:40 12/29/19 22:24 12/30/19 09:28 Range/Units White Blood Count 5.2 4.8 4.3-11.0 10^3/uL Red Blood Count 3.18 L 3.20 L 4.35-5.85 10^6/uL Hemoglobin 11.4 L 11.1 L 13.3-17.7 G/DL Hematocrit 33 L 34 L 40-54 % Mean Corpuscular Volume 105 H 106 H 80-99 FL Mean Corpuscular Hemoglobin 36 H 35 H 25-34 PG Mean Corpuscular Hemoglobin Concent 34 33 32-36 G/DL Red Cell Distribution Width 15.3 H 15.8 H 10.0-14.5 % Platelet Count 73 L 76 L 130-400 10^3/uL Mean Platelet Volume 10.5 H 10.2 7.4-10.4 FL Neutrophils (%) (Auto) 53 42-75 % Lymphocytes (%) (Auto) 31 12-44 % Monocytes (%) (Auto) 11 0-12 % Eosinophils (%) (Auto) 5 0-10 % Basophils (%) (Auto) 1 0-10 % Neutrophils # (Auto) 2.7 1.8-7.8 X 10^3 Lymphocytes # (Auto) 1.6 1.0-4.0 X 10^3 Monocytes # (Auto) 0.6 0.0-1.0 X 10^3 Eosinophils # (Auto) 0.3 0.0-0.3 10^3/uL Basophils # (Auto) 0.0 0.0-0.1 10^3/uL Prothrombin Time 23.0 H 24.1 H 12.2-14.7 SEC INR Comment 2.0 H 2.1 H 0.8-1.4 Sodium Level 138 138 135-145 MMOL/L Potassium Level 3.7 3.4 L 3.6-5.0 MMOL/L Chloride Level 105 108 H 98-107 MMOL/L Carbon Dioxide Level 24 26 21-32 MMOL/L Anion Gap 9 4 L 5-14 MMOL/L Blood Urea Nitrogen 5 L 6 L 7-18 MG/DL Creatinine 0.62 0.64 0.60-1.30 MG/DL Estimat Glomerular Filtration Rate > 60 > 60 BUN/Creatinine Ratio 8 9 Glucose Level 105 72 70-105 MG/DL Calcium Level 7.9 L 7.3 L 8.5-10.1 MG/DL Corrected Calcium 9.4 8.9 8.5-10.1 MG/DL Total Bilirubin 2.9 H 2.7 H 0.1-1.0 MG/DL Aspartate Amino Transf (AST/SGOT) 46 H 47 H 5-34 U/L Alanine Aminotransferase (ALT/SGPT) 30 30 0-55 U/L Alkaline Phosphatase 169 H 166 H 40-136 U/L Pro-B-Type Natriuretic Peptide 157.8 H <75.0 PG/ML Total Protein 6.0 L 6.1 L 6.4-8.2 GM/DL Albumin 2.1 L 2.0 L 3.2-4.5 GM/DL Serum Alcohol < 10 <10 MG/DL Urine Color KAREN H Urine Clarity SLT CLOUDY Urine pH 6.0 5-9 Urine Specific [employer] >=1.030 1.016-1.022 Urine Protein 1+ H NEGATIVE Urine Glucose (UA) TRACE H NEGATIVE Urine Ketones TRACE H NEGATIVE Urine Nitrite POSITIVE H NEGATIVE Urine Bilirubin 2+ H NEGATIVE Urine Urobilinogen 4.0 < = 1.0 MG/DL Urine Leukocyte Esterase NEGATIVE NEGATIVE Urine RBC (Auto) 3+ H NEGATIVE Urine RBC 25-50 H /HPF Urine WBC 0-2 /HPF Urine Squamous Epithelial Cells NONE /HPF Urine Crystals NONE /LPF Urine Bacteria TRACE /HPF Urine Casts NONE /LPF Urine Mucus LARGE H /LPF Urine Culture Indicated YES Urine Opiates Screen NEGATIVE NEGATIVE Urine Oxycodone Screen NEGATIVE NEGATIVE Urine Methadone Screen NEGATIVE NEGATIVE Urine Propoxyphene Screen NEGATIVE NEGATIVE Urine Barbiturates Screen NEGATIVE NEGATIVE Ur Tricyclic Antidepressants Screen NEGATIVE NEGATIVE Urine Phencyclidine Screen NEGATIVE NEGATIVE Urine Amphetamines Screen NEGATIVE NEGATIVE Urine Methamphetamines Screen NEGATIVE NEGATIVE Urine Benzodiazepines Screen NEGATIVE NEGATIVE Urine Cocaine Screen NEGATIVE NEGATIVE Urine Cannabinoids Screen POSITIVE H NEGATIVE Radiology CXR 12/28 with suspected pulmonary edema Physical Exam-([facility]) Physical Exam Vital Signs VS - Last 72 Hours, by Label 12/29/19 12/29/19 12/30/19 12/30/19 21:34 23:37 00:49 01:11 Temp 36.8 37.1 Pulse 100 89 88 86 Resp 20 18 26 B/P (MAP) 127/71 (89) 134/63 129/79 Pulse Ox 99 98 99 O2 Delivery Room Air Nasal Cannula Nasal Cannula O2 Flow Rate 2.00 2.00 12/30/19 12/30/19 12/30/19 12/30/19 04:40 04:45 06:45 08:00 Temp 37.6 37.6 36.6 Pulse 92 92 92 96 Resp 18 18 B/P (MAP) 115/69 (84) 115/69 (84) 110/63 (79) Pulse Ox 95 93 O2 Delivery Nasal Cannula Nasal Cannula O2 Flow Rate 1.00 1.00 12/30/19 12/30/19 12/30/19 12/30/19 08:00 08:54 12:00 12:43 Temp 36.6 Pulse 94 90 Resp 20 B/P (MAP) 99/62 (74) Pulse Ox 95 95 O2 Delivery Nasal Cannula Nasal Cannula Nasal Cannula O2 Flow Rate 1.00 1.00 1.00 Capillary Refill : Less Than 3 Seconds General Appearance: no apparent distress Eyes: Bilateral Eye Scleral Icterus Respiratory: crackles, wheezing Cardiovascular: regular rate, rhythm, no murmur Gastrointestinal: normal bowel sounds, non tender, distended Extremities: pedal edema Neurologic/Psychiatric: alert, normal mood/affect Skin: jaundice Assessment/Plan Assessment/Plan Admission Status: Inpatient Order (span 2 midnights) Reason for Inpatient Admission: Cirrhosis with high risk for decompensation (1) Cirrhosis of liver with ascites Status: Acute Assessment & Plan: Requiring every 2 week paracentesis, planning for hospice, needs drain placed for comfort care. Surgery consulted, plan for placement tomorrow. Qualifiers: Qualified Codes: K70.31 - Alcoholic cirrhosis of liver with ascites (2) Chest pain Status: Acute Assessment & Plan: Troponin negative, BNP minimally elevated, improved today, suspect related to abdominal distension. (3) Hepatitis C Assessment & Plan: s/p treatment in past, he believes it was resolved. (4) Pulmonary edema Status: Acute Assessment & Plan: IV lasix given in ER. Resume spironolactone, continue IV lasix. Qualifiers: Qualified Codes: J81.0 - Acute pulmonary edema (5) UTI (urinary tract infection) Status: Acute Assessment & Plan: Ceftriaxone (6) Ascites due to alcoholic cirrhosis Status: Acute (7) Thrombocytopenia (8) Hypokalemia (9) Macrocytic anemia (10) DVT prophylaxis Assessment & Plan: High INR and low platelets, no pharmacologic DVT prophylaxis. SCDs. Clinical Quality Measures DVT/VTE Risk/Contraindication: Risk Factor Score Per Nursin RFS Level Per Nursing on Admit: 3=High TESSA GALARZA MD Dec 30, 2019 14:45
[2019-12-30] MEDS: FUROSEMIDE 40 MG/4 ML INJ (LASIX) IVP SCH (16:09)
[2019-12-30] MEDS ORDERED: CYPROHEPTADINE (PERIACTIN) 4 MG TAB PO SCH (21:00)
--- NOTE | 2019-12-30 22:04 | Consultation - Surgery ---
History of Present Illness History of Present Illness Patient Consulted On(angle/time) 12/30/19 21:59 Date Seen by Provider: Dec 30, 2019 Time Seen by Provider: 10:24 History of Present Illness Consult requested by Dr. Galarza for pleur-x catheter placement for recurrent ascites Patient is a 39 year old male who has been requiring paracentesis every 2 weeks. His abdomen has continued to increase in size and making it difficult to breath. Patient with cirrhosis of liver and recurrent ascites. He is planning on going into hospice care, but wanted to have a pleur-x catheter placed before entering hospice. Patient has discomfort of abdomen due to the distention. Patient can't eat much due to the pressure of the fluid. Has nausea, but no emesis. He states when the fluid is drained, usually has improvement of his symptoms. When fluid increases, they get worse. Denies n/v fever sweats chills or chest pain at this time. Allergies and Home Medications Allergies Coded Allergies: No Known Drug Allergies (Unverified , 10/07/18) Home Medications Cariprazine Hydrochloride 3 Mg Capsule, 3 MG PO DAILY, (Reported) LAST FILLED 11-04-2019 #30/30 DAY SUPPLY Cyproheptadine HCl 4 Mg Tablet, 4 MG PO HS, (Reported) Furosemide 40 Mg Tablet, 40 MG PO DAILY, (Reported) Spironolactone 100 Mg Tablet, 100 MG PO DAILY, (Reported) LAST FILLED 04-02-2020 #90/ DAY SUPPLY Tramadol HCl 50 Mg Tablet, 50-100 MG PO Q4 -6H PRN for PAIN-MODERATE (5-7), (Reported) Zolpidem Tartrate 10 Mg Tablet, 10 MG PO HS PRN for SLEEP, (Reported) Patient Home Medication List Home Medication List Reviewed: Yes Past Yofwxdm-Dwrirq-Osysxj Hx Patient Social History Alcohol Use: Denies Use Recreational Drug Use: Yes Drug of Choice: marijuana Smoking Status: Current Everyday Smoker Type Used: Cigarettes 2nd Hand Smoke Exposure: Yes Recent Foreign Travel: No Contact w/Someone Who Travel: No Recent Infectious Disease Expo: No Recent Hopitalizations: No Immunizations Up To Date Date of Pneumonia Vaccine: Dec 29, 2017 Seasonal Allergies Seasonal Allergies: No Surgeries History of Surgeries: Yes (Liver bx/paracentesis) Respiratory History of Respiratory Disorde: No Cardiovascular History of Cardiac Disorders: No Neurological History of Neurological Disord: No Genitourinary History of Genitourinary Disor: No Gastrointestinal History of Gastrointestinal Di: Yes (Hep C) Gastrointestinal Disorders: Hepatitis, Cirrhosis Musculoskeletal History of Musculoskeletal Dis: No Endocrine History of Endocrine Disorders: No HEENT History of HEENT Disorders: No Cancer History of Cancer: No Psychosocial History of Psychiatric Problem: Yes (Hx SI) Behavioral Health Disorders: Anxiety, Bipolar, Schizophrenia, Depression Blood Transfusions History of Blood Disorders: No Reviewed Nursing Assessment Reviewed/Agree w Nursing PMH: Yes Family Medical History Significant Family History: No Pertinent Family Hx Review of Systems-General Constitutional: no symptoms reported; No chills, No diaphoresis EENTM: no symptoms reported; No hearing loss, No blurred vision Respiratory: cough (chronic), dyspnea on exertion, short of breath Cardiovascular: No chest pain, No edema Gastrointestinal: abdominal pain (due to pressure of fluid), loss of appetite, nausea; No vomiting Genitourinary: no symptoms reported; No decreased output, No discharge Musculoskeletal: No back pain, No gout, No joint pain Skin: No change in color, No change in hair/nails Psychiatric/Neurological: Denies Anxiety, Denies Depressed, Denies Emotional Problems All Other Systems Reviewed Negative Unless Noted: Yes (Negative excepted noted.) Physical Exam-General Problems Physical Exam Vital Signs Vital Signs - First Documented 12/29/19 12/29/19 21:34 23:37 Temp 36.8 Pulse 100 Resp 20 B/P (MAP) 127/71 (89) Pulse Ox 99 O2 Delivery Room Air O2 Flow Rate 2.00 Capillary Refill : Less Than 3 Seconds General Appearance: no apparent distress (laying in bed) HEENT: PERRL/EOMI, normal ENT inspection Neck: non-tender, full range of motion, supple Respiratory: chest non-tender, no respiratory distress, no accessory muscle use Cardiovascular: regular rate, rhythm, no edema Gastrointestinal: soft, distended (fluid wave); No guarding, No rebound; tenderness (minimal diffuse) Rectal: deferred Back: normal inspection, no CVA tenderness, no vertebral tenderness Extremities: normal range of motion, non-tender, normal inspection Neurologic/Psychiatric: glass finisher II-XII nml as tested, no motor/sensory deficits, alert, normal mood/affect, oriented x 3 Skin: normal color, warm/dry Lymphatic: no adenopathy Data Review Labs Laboratory Tests 12/29/19 22:24: Urine Color AMBERH, Urine Clarity SLT CLOUDY, Urine pH 6.0, Urine Specific [place] >=1.030, Urine Protein 1+H, Urine Glucose (UA) TRACEH, Urine Ketones TRACEH, Urine Nitrite POSITIVEH, Urine Bilirubin 2+H, Urine Urobilinogen 4.0, Urine Leukocyte Esterase NEGATIVE, Urine RBC (Auto) 3+H, Urine RBC 25-50H, Urine WBC 0-2, Urine Squamous Epithelial Cells NONE, Urine Crystals NONE, Urine Bacteria TRACE, Urine Casts NONE, Urine Mucus LARGEH, Urine Culture Indicated YES, Urine Opiates Screen NEGATIVE, Urine Oxycodone Screen NEGATIVE, Urine Methadone Screen NEGATIVE, Urine Propoxyphene Screen NEGATIVE, Urine Barbiturates Screen NEGATIVE, Ur Tricyclic Antidepressants Screen NEGATIVE, Urine Phencyclidine Screen NEGATIVE, Urine Amphetamines Screen NEGATIVE, Urine Methamphetamines Screen NEGATIVE, Urine Benzodiazepines Screen NEGATIVE, Urine Cocaine Screen NEGATIVE, Urine Cannabinoids Screen POSITIVEH 12/30/19 09:28: White Blood Count 4.8, Red Blood Count 3.20L, Hemoglobin 11.1L, Hematocrit 34L, Mean Corpuscular Volume 106H, Mean Corpuscular Hemoglobin 35H, Mean Corpuscular Hemoglobin Concent 33, Red Cell Distribution Width 15.8H, Platelet Count 76L, Mean Platelet Volume 10.2, Prothrombin Time 24.1H, INR Comment 2.1H, Sodium Level 138, Potassium Level 3.4L, Chloride Level 108H, Carbon Dioxide Level 26, Anion Gap 4L, Blood Urea Nitrogen 6L, Creatinine 0.64, Estimat Glomerular Filtration Rate > 60, BUN/Creatinine Ratio 9, Glucose Level 72, Calcium Level 7.3L, Corrected Calcium 8.9, Total Bilirubin 2.7H, Aspartate Amino Transf (AST/SGOT) 47H, Alanine Aminotransferase (ALT/SGPT) 30, Alkaline Phosphatase 166H, Total Protein 6.1L, Albumin 2.0L Microbiology 12/29/19 Urine Culture - Preliminary, Resulted Assessment/Plan Assessment/Plan Assessment/Plan cirrhosis with ascites that is recurrent hep c abdominal pain secondary to distention patient planning on enrolling in hospice Discussed with Dr. Galarza and she would like me to place a Pleur-x catheter in abdomen for comfort Discussed with patient and his family and they understand risks and benefits and they wish to proceed with placement of pleur-x cathter npo after midnight place tomorrow. all questions answered. Clinical Quality Measures DVT/VTE Risk/Contraindication: Risk Factor Score Per Nursin RFS Level Per Nursing on Admit: 3=High BARBARA CLEMENTS DO Dec 30, 2019 22:04
[2019-12-30] MEDS ORDERED: cefTRIAXone FOR IV USE 1,000 MG in WATER (STERILE) FOR INJECTION 10 ML IV SCH (23:00)
[2019-12-31] VITALS (8 sets, daily range): BP systolic 93–100; BP diastolic 53–64
[2019-12-31 05:26] LABS: BASOPHILS % (AUTO) 0 % (0-10); EOSINOPHILS # (AUTO) 0.2 10^3/uL (0.0-0.3); EOSINOPHILS % (AUTO) 6 % (0-10); HEMATOCRIT 31 % (40-54); HEMOGLOBIN 10.3 G/DL (13.3-17.7); LYMPHOCYTES # (AUTO) 1.5 X 10^3 (1.0-4.0); LYMPHOCYTES % (AUTO) 44 % (12-44); MEAN CORPUSCULAR HEMOGLOBIN 35 PG (25-34); MEAN CORPUSCULAR HGB CONC 33 G/DL (32-36); MEAN CORPUSCULAR VOLUME 107 FL (80-99); MEAN PLATELET VOLUME 10.4 FL (7.4-10.4); MONOCYTES # (AUTO) 0.4 X 10^3 (0.0-1.0); MONOCYTES % (AUTO) 10 % (0-12); NEUTROPHILS # (AUTO) 1.4 X 10^3 (1.8-7.8); NEUTROPHILS % (AUTO) 40 % (42-75); PLATELET COUNT 80 10^3/uL (130-400); RED CELL DISTRIBUTION WIDTH 15.9 % (10.0-14.5); WHITE BLOOD COUNT 3.5 10^3/uL (4.3-11.0)
--- NOTE | 2019-12-31 07:24 | Diagnostic Imaging Report ---
INDICATION: Edema. Comparison made with prior examination from 12/29/2019. FINDINGS: The heart size is normal. Some venous congestion. There is an increasing alveolar infiltrate in the left lung base suspect for pneumonia. There is also some right basilar subsegmental atelectasis and/or pneumonitis. There is no pneumothorax. The mediastinum is unremarkable. IMPRESSION: Increasing alveolar infiltrate in the left lung base suspect for pneumonia. There is also now some right basilar subsegmental atelectasis and/or pneumonitis. Mild central pulmonary venous congestion. Dictated by: Dictated on workstation # [id number]
[2019-12-31] MEDS: FUROSEMIDE 40 MG/4 ML INJ (LASIX) IVP SCH (08:58)
[2019-12-31] MEDS ORDERED: NON-FORMULARY MEDICATION 1 EA EA (Cariprazine Hydrochloride (Vraylar) 3 MG) PO SCH (09:00)
[2019-12-31] MEDS ORDERED: SPIRONOLACTONE 100 MG (ALDACTONE) TABLET PO SCH (09:00)
[2019-12-31] MEDS ORDERED: BUP/EPI 0.5% 1:200,000 (SENSORCAINE) 30 ML VIAL ONE (09:27)
[2019-12-31] MEDS ORDERED: ONDANSETRON 4 MG/2 ML (SDV) Z0FRAN ONE (09:30)
[2019-12-31] MEDS ORDERED: PROPOFOL INJECTION 50 ML IV ONE (09:30)
[2019-12-31] MEDS ORDERED: MIDAZOLAM 2 MG/2 ML (VERSED) VIAL ONE (09:36)
[2019-12-31] MEDS ORDERED: LACTATED RINGERS 1,000 ML IV PRN (10:21)
[2019-12-31] MEDS ORDERED: fentaNYL INJECTION 100 MCG/2 ML AMP ONE (11:40)
[2019-12-31] MEDS ORDERED: KETAMINE/NaCl 50 MG/5 ML SYRINGE (ED ONLY) ONE (11:48)
[2019-12-31] MEDS ORDERED: LIDOCAINE PF 2% 5 ML (XYLOCAINE) VIAL ONE (11:51)
[2019-12-31] MEDS ORDERED: GLYCOPYRROLATE 0.2 MG/ML (ROBINUL) 2 ML VIAL ONE (11:51)
--- NOTE | 2019-12-31 12:00 | Progress Note - Surgery ---
Subjective Date Seen by a Provider: Dec 31, 2019 Time Seen by a Provider: 09:47 Subjective/Events-last exam Patient no new complaints. Still short of breath due to distention of abdomen. Pain unchanged from yesterday. Denies fever sweats chills or chest pain. NPO currently of procedure. Objective Exam Vital Signs Date Time Temp Pulse Resp B/P (MAP) Pulse Ox O2 Delivery O2 Flow Rate FiO2 12/31/19 11:55 Nasal Cannula 1.00 12/31/19 08:00 Nasal Cannula 1.00 12/31/19 08:00 36.6 77 18 95/53 (67) 98 Nasal Cannula 1.00 12/31/19 06:45 78 12/31/19 04:00 36.4 80 16 95/57 (70) 94 Nasal Cannula 1.00 12/31/19 01:00 80 12/30/19 23:41 37.3 92 20 82/57 (65) 94 Nasal Cannula 1.00 12/30/19 20:09 37.1 80 15 107/57 (74) 96 Nasal Cannula 1.00 12/30/19 20:00 Nasal Cannula 1.00 12/30/19 19:00 87 12/30/19 15:30 37.0 87 20 114/70 (85) 97 Nasal Cannula 1.00 12/30/19 12:43 90 12/30/19 12:00 36.6 94 20 99/62 (74) 95 Nasal Cannula 1.00 I & O 12/31/19 07:00 Intake Total 1660 ml Balance 1660 ml Capillary Refill : Less Than 3 Seconds General Appearance: No Apparent Distress, WD/WN, Anxious HEENT: PERRL/EOMI, Normal ENT Inspection Neck: Normal Inspection, Non Tender Respiratory: Chest Non Tender, Lungs Clear, Normal Breath Sounds, No Accessory Muscle Use, No Respiratory Distress Cardiovascular: Regular Rate, Rhythm, No Edema, Normal Peripheral Pulses Gastrointestinal: soft, distended (fluid wave); No guarding, No rebound; tenderness (minimal diffuse) Neurologic/Psychiatric: Alert, Oriented x3, No Motor/Sensory Deficits, Normal Mood/Affect Skin: Warm/Dry (mild jaundice) Lymphatic: No Adenopathy Results Lab Laboratory Tests 12/31/19 05:14: White Blood Count 3.5L, Red Blood Count 2.94L, Hemoglobin 10.3L, Hematocrit 31L, Mean Corpuscular Volume 107H, Mean Corpuscular Hemoglobin 35H, Mean Corpuscular Hemoglobin Concent 33, Red Cell Distribution Width 15.9H, Platelet Count 80L, Mean Platelet Volume 10.4, Neutrophils (%) (Auto) 40L, Lymphocytes (%) (Auto) 44, Monocytes (%) (Auto) 10, Eosinophils (%) (Auto) 6, Basophils (%) (Auto) 0, Neutrophils # (Auto) 1.4L, Lymphocytes # (Auto) 1.5, Monocytes # (Auto) 0.4, Eosinophils # (Auto) 0.2, Basophils # (Auto) 0.0 Microbiology 12/29/19 Urine Culture - Preliminary, Resulted Assessment/Plan Assessment/Plan Assessment/Plan cirrhosis with ascites that is recurrent hep c abdominal pain diffuse secondary to distention patient planning on enrolling in hospice Discussed with Dr. Galarza and she would like me to place a Pleur-x catheter in abdomen for comfort Discussed with patient and his family and they understand risks and benefits and they wish to proceed with placement of pleur-x cathter today all questions answered. Clinical Quality Measures DVT/VTE Risk/Contraindication: Risk Factor Score Per Nursin RFS Level Per Nursing on Admit: 3=High BARBARA CLEMENTS DO Dec 31, 2019 12:00
[2019-12-31] MEDS ORDERED: ceFAZolin INJECTION 2,000 MG ONE (12:02)
[2019-12-31] MEDS ORDERED: HYDROmorphone 2 MG/ML VIAL (DILAUDID) IV ONE (12:45)
[2019-12-31] MEDS ORDERED: ALBUMIN 25% 25 GM/100 ML 100 ML IV SCH (12:45)
[2019-12-31] MEDS ORDERED: ONDANSETRON 4 MG/2 ML (SDV) Z0FRAN IVP PRN (12:45)
--- NOTE | 2019-12-31 12:52 | Progress Note-Post Operative ---
Post-Operative Progess Note Surgeon (s)/Nephrology Nurse (s) Surgeon BARBARA CLEMENTS DO Nephrology Nurse: na Pre-Operative Diagnosis Cirrhosis with recurrent symptomatic ascites Post-Operative Diagnosis same Procedure & Operative Findings Date of Procedure 12/31/19 Procedure Performed/Findings u/s guided pleur-x catheter abdomen Anesthesia Type mac c local Estimated Blood Loss Estimated blood loss (mL): min Specimens/Packing Specimens Removed na BARBARA CLEMENTS DO Dec 31, 2019 12:52
--- NOTE | 2019-12-31 12:58 | Anesthesia-General Post-Op ---
MAC Patient Condition Mental Status/LOC: Same as Preop Cardiovascular: Satisfactory Nausea/Vomiting: Absent Respiratory: Satisfactory Pain: Controlled Complications: Absent Post Op Complications Complications None Follow Up Care/Instructions Patient Instructions None needed. Anesthesiology Discharge Order Discharge Order Patient is doing well, no complaints, stable vital signs, no apparent adverse anesthesia problems. No complications reported per nursing. TAWANDA LAGUNA LINE SERVICE TECHNICIAN Dec 31, 2019 12:58
--- NOTE | 2019-12-31 14:07 | Diagnostic Imaging Report ---
EXAMINATION: Ultrasound insertion of pleural catheter. INDICATION: Pleural effusion. FINDINGS: Ultrasound assistance was provided for Dr. Roberto Jj during his pleural catheter insertion procedure. A collection of fluid was identified in the right upper quadrant. Subsequently, the pleural drainage catheter was inserted by Dr. Jj. The patient tolerated the procedure well. IMPRESSION: There has been a successful ultrasound-guided pleural catheter insertion into the right upper quadrant. Dictated by: Dictated on workstation # [id number]
[2019-12-31] MEDS ORDERED: CIPR-225 PO (14:26)
--- NOTE | 2019-12-31 14:29 | Discharge Summary ---
Discharge Summary Hospital Course Problems/Diagnosis: (1) Cirrhosis of liver with ascites Status: Acute Assessment & Plan: Requiring every 2 week paracentesis, planning for hospice, needs drain placed for comfort care. Surgery consulted, plan for placement tomorrow. 12/30 9.5 liters removed, drain placed in OR, discharged with hospice services. Qualifiers: Qualified Codes: K70.31 - Alcoholic cirrhosis of liver with ascites (2) Chest pain Status: Acute Assessment & Plan: Troponin negative, BNP minimally elevated, improved today, suspect related to abdominal distension. Resolved after ascitic fluid removal. (3) Hepatitis C Assessment & Plan: s/p treatment in past, he believes it was resolved. (4) Pulmonary edema Status: Acute Assessment & Plan: IV lasix given in ER. Resume spironolactone, continue IV lasix. Resume home diuretics on d/c Qualifiers: Qualified Codes: J81.0 - Acute pulmonary edema (5) UTI (urinary tract infection) Status: Acute Assessment & Plan: Treat with cipro on d/c. (6) Ascites due to alcoholic cirrhosis Status: Acute (7) Thrombocytopenia Status: Chronic (8) Hypokalemia (9) Macrocytic anemia Hospital Course Date of Admission: Dec 29, 2019 at 23:00 Admission Diagnosis : Family Physician/Provider: Didi Giron Date of Discharge: 12/31/19 Discharge Diagnosis: See problem list Hospital Course: See problem list Labs and Pending Lab Test: Laboratory Tests 12/31/19 05:14: White Blood Count 3.5L, Red Blood Count 2.94L, Hemoglobin 10.3L, Hematocrit 31L, Mean Corpuscular Volume 107H, Mean Corpuscular Hemoglobin 35H, Mean Corpuscular Hemoglobin Concent 33, Red Cell Distribution Width 15.9H, Platelet Count 80L, Mean Platelet Volume 10.4, Neutrophils (%) (Auto) 40L, Lymphocytes (%) (Auto) 44, Monocytes (%) (Auto) 10, Eosinophils (%) (Auto) 6, Basophils (%) (Auto) 0, Neutrophils # (Auto) 1.4L, Lymphocytes # (Auto) 1.5, Monocytes # (Auto) 0.4, Eosinophils # (Auto) 0.2, Basophils # (Auto) 0.0 12/31/19 11:50: Coronavirus (COVID-19)(PCR) [Pending] Microbiology 12/29/19 Urine Culture - Preliminary, Resulted Home Meds Active Cipro (Ciprofloxacin HCl) 500 Mg Tablet 500 Mg PO BID 7 Days Reported Vraylar (Cariprazine Hydrochloride) 3 Mg Capsule 3 Mg PO DAILY LAST FILLED 11-04-2019 #30/30 DAY SUPPLY Lasix (Furosemide) 40 Mg Tablet 40 Mg PO DAILY Spironolactone 100 Mg Tablet 100 Mg PO DAILY LAST FILLED 04-02-2020 #90/ DAY SUPPLY Ambien (Zolpidem Tartrate) 10 Mg Tablet 10 Mg PO HS PRN Tramadol HCl 50 Mg Tablet 50-100 Mg PO Q4 -6H PRN MDD 4 TABS Cyproheptadine HCl 4 Mg Tablet 4 Mg PO HS Assessment/Pt DC Instructions Admit to home hospice services. Discharge Diet: No Restrictions Activity as Tolerated: Yes Orders-Post D/C & Referrals Admit to hospice services, patient with end stage cirrhosis and not expected to liver more than 6 months. Discharge Physical Examination Allergies: Coded Allergies: No Known Drug Allergies (Unverified , 10/07/18) General Appearance: No Apparent Distress Respiratory: Lungs Clear, Normal Breath Sounds Cardiovascular: Regular Rate, Rhythm, No Murmur Gastrointestinal: Normal Bowel Sounds, Distended (markedly improved from admission) Neurologic/Psychiatric: Alert, Normal Mood/Affect Clinical Quality Measures DVT/VTE Risk/Contraindication: Risk Factor Score Per Nursin RFS Level Per Nursing on Admit: 3=High TESSA RICHARDS MD Dec 31, 2019 14:28
--- NOTE | 2019-12-31 15:20 | OPERATIVE REPORT ---
DATE OF SERVICE: 12/31/2019 PREOPERATIVE DIAGNOSIS: Cirrhosis with recurrent symptomatic ascites. POSTOPERATIVE DIAGNOSIS: Cirrhosis with recurrent symptomatic ascites. PROCEDURE: Ultrasound-guided PleurX catheter at the abdomen. SURGEON: Barbara Jj DO ANESTHESIA: MAC with local. ESTIMATED BLOOD LOSS: Minimal. COMPLICATIONS: None. INDICATIONS: The patient is a 39-year-old male with cirrhosis of the liver with recurrent symptomatic ascites. The patient is going to be enrolling in hospice care and it was asked that a PleurX catheter replaced. The patient understands risks and benefits of procedure and wished to proceed with procedure. Consent was signed in the chart. DESCRIPTION OF PROCEDURE: The patient was taken to the operating suite, prepped and draped in sterile fashion. Timeout was performed. Ultrasound was used to isolate the largest pocket that was able to be visualized with ultrasound. Local anesthetic was infiltrated into this area and small incision was made. Angiocath needle was inserted. One straw-colored fluid was withdrawn. The catheter was advanced and then removed. The guidewire was inserted through the catheter and the catheter was then removed. The wire was secured. Local anesthetic was infiltrated in the subcutaneous tissues for tunneling purposes and another small incision was made inferior to the first for tunneling purposes. The catheter was then tunneled from the lower incision to the upper where the wire was present. Serial dilators were then advanced over the wire and removed and then the wire and the dilator were removed once the sheath was in place and the catheter was then inserted through the sheath and the sheath was then removed. Using absorbable suture, the incision was closed at the insertion point. The tunneling incision was then closed with silk suture and secured the catheter. The abdomen was then drained. A total of approximately 9.5 liters of straw-colored fluid was withdrawn off the abdomen. The area was then washed and dried and sterile bandages were applied. The patient tolerated procedure well without any complications. He was taken to recovery room in stable condition. Job ID: [id number] DocumentID: [id number] Dictated Date: 12/31/2019 14:57:01 Marine Engine Machinist Apprentice Date: 12/31/2019 15:20:30 Dictated By: BARBARA JJ DO
--- NOTE | 2019-12-31 15:26 | NUR ---
CM/SS finalized. Plan: Patient is discharging home today with [facility]. CM/SS visited with the patient and his today to verify this was the wished upon plan. They both verbally agreed this was the plan they wanted. CM/SS contacted [facility] and spoke with Kirk about patient discharging today and this cm/ss emailed discharge hospice orders to [email or web address]. The patient plans to leave the hospital around 4:30 p.m. [facility] is aware of patient discharge time. They will get him admitted. The patient reported that he did not need any equipment at home at this time. CM/SS informed [facility] of this. No further needs at this time.
--- NOTE | 2020-01-01 07:58 | Anesthesia-General Post-Op ---
MAC Patient Condition Mental Status/LOC: Same as Preop Cardiovascular: Satisfactory Nausea/Vomiting: Absent Respiratory: Satisfactory Pain: Controlled Complications: Absent Post Op Complications Complications None Follow Up Care/Instructions Patient Instructions None needed. Anesthesiology Discharge Order Discharge Order Patient is doing well, no complaints, stable vital signs, no apparent adverse anesthesia problems. No complications reported per nursing. YLOA DEL TORO CRNA Jan 01, 2020 07:58
== END 2019-12-31 16:53 | disposition hospice, home (50) | DRG 432 ==
LOC: EDUNIT# 21:31 → ER FS 21:32 → 4TH 23:00
PROVIDERS: ADMIT Family Medicine; ATTEND Family Medicine
PROC: 0W9G30Z Drainage of Peritoneal Cavity with Drainage Device, Percutaneous Approach (ICD-10-PCS; principal; 2019-12-31 12:05)
DX: K70.31 Alcoholic cirrhosis of liver with ascites (principal); J81.0 Acute pulmonary edema; N39.0 Urinary tract infection, site not specified; F10.20 Alcohol dependence, uncomplicated; B19.20 Unspecified viral hepatitis C without hepatic coma; F17.210 Nicotine dependence, cigarettes, uncomplicated; D69.6 Thrombocytopenia, unspecified; D53.9 Nutritional anemia, unspecified; E87.6 Hypokalemia; F41.9 Anxiety disorder, unspecified; F20.9 Schizophrenia, unspecified; F31.9 Bipolar disorder, unspecified
CPT/HCPCS: 32550; 36415; 71045; 80053; 80306; 80320; 81000; 83880; 85025; 85027; 85610; 87081; 87088; 87635; 93005; 96374; 96375